=== PATIENT | male | born 1960 | race Caucasian/White ===

== ENCOUNTER 2021-02-02 11:32 | Outpatient (REF) | payer MEDICARE, SELFPAY ==
[2021-02-02 14:56] LABS: Alanine Aminotransferase 11 U/L (0-40); Albumin Level 4.4 g/dL (3.5-5.0); Alkaline Phosphatase 91 U/L (39-117); Anion Gap 15 (12-20); Aspartate Amino Transferase 17 U/L (5-37); Bilirubin Total 0.5 mg/dL (0.0-1.0); Blood Urea Nitrogen 10 mg/dL (9-16); Calcium 9.5 mg/dL (8.4-10.2); Carbon Dioxide 29 mmol/L (22-29); Chloride 101 mmol/L (96-108); Estimated Glomerular Filt Rate > 60; Glucose Random 116 mg/dL (60-115); Potassium 4.3 mmol/L (3.3-5.1); Sodium 141 mmol/L (135-145); Total Protein 7.4 g/dL (6.5-8.0)
[2021-02-02 14:59] LABS: TSH reflex Free T4 19.34 uIU/mL (0.32-4.0)
[2021-02-02 15:39] LABS: Free T4 (Free Thyroxine) 0.55 ng/dL (0.71-1.85)
== END 2021-02-02 11:33 | disposition home or self-care (01) ==
LOC: HO.HMGCLDS 11:32
PROVIDERS: PCP Internal Medicine; Visit Provider Internal Medicine
DX: I10 Essential (primary) hypertension (principal); E03.8 Other specified hypothyroidism; E78.9 Disorder of lipoprotein metabolism, unspecified; F41.9 Anxiety disorder, unspecified
CPT/HCPCS: 36415; 80053; 84439; 84443

== ENCOUNTER 2021-04-25 14:37 | Outpatient (REF) | payer MEDICARE, SELFPAY ==
[2021-04-25 17:38] LABS: TSH reflex Free T4 7.02 uIU/mL (0.32-4.0)
[2021-04-25 18:21] LABS: Free T4 (Free Thyroxine) 0.78 ng/dL (0.71-1.85)
== END 2021-04-25 14:38 | disposition home or self-care (01) ==
LOC: HO.HMGCLDS 14:37
PROVIDERS: PCP Internal Medicine; Visit Provider Internal Medicine
DX: E03.8 Other specified hypothyroidism (principal)
CPT/HCPCS: 36415; 84439; 84443

== ENCOUNTER 2021-11-01 14:50 | Outpatient (REF) | payer MEDICARE, SELFPAY ==
[2021-11-01 17:05] LABS: TSH reflex Free T4 0.48 uIU/mL (0.32-4.0)
== END 2021-11-01 14:51 | disposition home or self-care (01) ==
LOC: HO.HMGCLDS 14:50
PROVIDERS: PCP Internal Medicine; Visit Provider Internal Medicine
DX: E03.8 Other specified hypothyroidism (principal)
CPT/HCPCS: 36415; 84443

== ENCOUNTER 2022-08-09 12:36 | Outpatient (REF) | payer MEDICARE, SELFPAY ==
[2022-08-09 14:12] LABS: MANUAL DIFF FLAG NO
[2022-08-09 14:26] LABS: Basophils Percent Auto 0.4 % (0-2); Eosinophils Absolute Auto 0.1 X10*3/uL (0.0-0.4); Eosinophils Percent Auto 1.9 % (0-4); Hematocrit 44.1 % (42.0-52.0); Hemoglobin 14.6 g/dl (14.0-18.0); Imm Gran Abs Auto 0.02 X10*3/uL (0.00-0.03); Imm Gran Pct Auto 0.3 % (0.0-0.4); Lymphocytes Absolute Auto 0.9 X10*3/uL (1.2-4.9); Lymphocytes Percent Auto 12.3 % (20-40); Mean Corpuscular HGB Conc 33.1 g/dl (31.0-36.0); Mean Corpuscular Hemoglobin 31.9 pg (27.0-33.0); Mean Corpuscular Volume 96.3 fL (80.0-98.0); Mean Platelet Volume 10.7 fL (9.4-12.4); Monocytes Absolute Auto 0.6 X10*3/uL (0.1-1.2); Monocytes Percent Auto 7.7 % (2-11); Neutrophils Absolute Auto 5.8 x10*3/uL (2.0-8.3); Neutrophils Percent Auto 77.4 % (45-73); Platelet Count 235 X10*3/uL (160-400); Red Blood Count 4.58 X10*6/uL (4.60-5.80); Red Cell Distribution Width 12.6 % (11.0-16.0); White Blood Count 7.4 X10*3/uL (4.8-10.8)
[2022-08-09 16:20] LABS: Influenza A PCR NEGATIVE (Negative); Influenza B PCR NEGATIVE (Negative); Resp Syncy Virus RNA Qual PCR NEGATIVE (Negative); SARS COV2 PCR INHOUSE NEGATIVE (Negative)
[2022-08-09 16:47] LABS: Alanine Aminotransferase 14 U/L (0-40); Albumin Level 4.4 g/dL (3.5-5.0); Alkaline Phosphatase 94 U/L (39-117); Anion Gap 11 (12-20); Aspartate Amino Transferase 19 U/L (5-37); Bilirubin Total 0.4 mg/dL (0.0-1.0); Blood Urea Nitrogen 11 mg/dL (9-16); Calcium 9.5 mg/dL (8.4-10.2); Carbon Dioxide 35 mmol/L (22-29); Chloride 97 mmol/L (96-108); Estimated Glomerular Filt Rate > 60; Glucose Random 107 mg/dL (60-115); Potassium 4.5 mmol/L (3.3-5.1); Sodium 138 mmol/L (135-145); TSH reflex Free T4 23.76 uIU/mL (0.32-4.0); Total Protein 7.4 g/dL (6.5-8.0)
[2022-08-09 17:18] LABS: Free T4 (Free Thyroxine) 0.57 ng/dL (0.71-1.85)
[2022-08-10 18:14] LABS: LDL Cholesterol Direct 180 mg/dL (<100)
== END 2022-08-09 12:37 | disposition home or self-care (01) ==
LOC: HO.HMGCLDS 12:36
PROVIDERS: PCP Internal Medicine; Visit Provider Internal Medicine
DX: Z20.822 Contact with and (suspected) exposure to COVID-19 (principal); C14.0 Malignant neoplasm of pharynx, unspecified; E03.8 Other specified hypothyroidism; F33.9 Major depressive disorder, recurrent, unspecified; F41.9 Anxiety disorder, unspecified; I10 Essential (primary) hypertension; M54.2 Cervicalgia; Z72.0 Tobacco use; Z93.0 Tracheostomy status
CPT/HCPCS: 0241U; 36415; 80053; 83721; 84439; 84443; 85025

== ENCOUNTER 2022-09-23 15:21 | Outpatient (REF) | payer MEDICARE, SELFPAY ==
[2022-09-23 18:34] LABS: TSH reflex Free T4 0.04 uIU/mL (0.32-4.0)
[2022-09-23 20:01] LABS: Free T4 (Free Thyroxine) 1.21 ng/dL (0.71-1.85)
== END 2022-09-23 15:22 | disposition home or self-care (01) ==
LOC: HO.HMGCLDS 15:21
PROVIDERS: PCP Internal Medicine; Visit Provider Internal Medicine
DX: E03.8 Other specified hypothyroidism (principal)
CPT/HCPCS: 36415; 84439; 84443

== ENCOUNTER 2023-03-18 02:45 | Emergency (ER) | payer MEDICARE, SELFPAY ==
--- NOTE | ~2023-03-18 | XR_ITS ---
EXAMINATION: XR ELBOW, LEFT CLINICAL INFORMATION: Left elbow injury COMPARISON: None available. TECHNIQUE: AP, lateral, and oblique views of the left elbow. FINDINGS: Osseous alignment is anatomic. There is severe degenerative change at the elbow with joint space narrowing and spurring. No acute fracture is seen. There is prominent dorsal soft tissue swelling medially with possible associated skin defect. Small nonspecific calcification noted in the ventral soft tissues on the lateral view. XR/XR elbow LT min 3V IMPRESSION: Prominent dorsal soft tissue swelling with possible skin defect. No acute fracture identified. Severe degenerative change.
[2023-03-18 03:14] VITALS: BP 104/69; PULSE 63; RESP 16; TEMP 37.1; O2SAT 92; BMI 23.6
[2023-03-18 04:00] VITALS: BP 108/68; PULSE 66; RESP 18; TEMP 36.5; O2SAT 98
[2023-03-18 07:42] VITALS: BP 131/74; PULSE 50; RESP 14; TEMP 36.6; O2SAT 93
--- NOTE | 2023-03-18 08:23 | PC.NURSE ---
pt very upset with wait to see provider, stating this is bullshit we have been here for over 6 hours . laceration of pt re-wrapped, pt and not willing to wait for provider
== END 2023-03-18 08:26 | disposition left against medical advice (07) ==
PROVIDERS: Emergency Provider Emergency Medicine; PCP Internal Medicine
DX: M25.522 Pain in left elbow (principal)
CPT/HCPCS: 73080; 99283

== ENCOUNTER 2023-03-18 08:49 | Outpatient (AMB) | payer MEDICARE, SELFPAY ==
--- NOTE | 2023-03-18 09:00 | AM.OFFWIN_ITS ---
Intake Vital Signs 03/18/23 09:04 BP 120/80 Blood Pressure Location Rt brachial Position Sitting Pulse 64 Pulse Source Pulse Oximeter Pulse Oximetry (%) 97 Oxygen Delivery Method Room Air Intake Visit Reasons: EP, Laceration Left Elbow Intake Note: * Patient here because he had a fall in the bathroom at around 12pm and went to ED, laceration on left elbow. Patient Tobacco Use Status: Current everyday Tobacco user Allergies No Known Allergies Allergy (Verified 03/18/23 09:03) Do you need a note to return to daycare/school/sports/work: No HPI EP, Laceration Left Elbow HPI Details 63-year-old male presents to the office for a sick visit. Patient fell yesterday in the bathroom. [facility] Medical History Anxiety Throat cancer Family History Father Cancer Social History Housing: Apartment Patient Tobacco Use Status: Current everyday Tobacco user Cigarette Packs Per Day: 0.25 Years Smoked: 50 years e-Cigarette/Vaping Use: Never Used Second Hand Smoke Exposure: Yes service: No Current occupational status: disabled Cognitive needs: No Hearing needs: No Vision needs: No Physical Exam Vital Signs: Last Vital Signs Pulse 64 03/18/23 09:04 BP 120/80 03/18/23 09:04 Pulse Ox 97 03/18/23 09:04 Oxygen Delivery Method Room Air 03/18/23 09:04 Skin Other: Left elbow: Posterior surface: 2 will lacerated wound, deep. Full range of motion at the elbow. One wound is 3 centimetres in size and the other is 5 centimetres in size. Office Procedures Laceration Repair Laceration repair performed by: Temo Bradshaw Explained risks and benefits to parent: Yes Location: Left elbow Length: 8 cm Sedation: No Anesthesia: 2% lidocaine Irrigation: saline Preparation: betadine Deep closure: No Skin closure: nylon Technique: Two wounds. One is 5 centimetres in the other is 3 centimetres in size. Topical treatment: mupiricin Tetanus toxoid ordered: No Patient tolerated procedure: well Complications: [place] [id number] Repair 2.6-7.5cm Procedure code (CPT) selection complete Assessment & Plan Assessment & Plan (1) Elbow wound: Code(s): S51.009A - Unspecified open wound of unspecified elbow, initial encounter Orders: Orders Laceration repair Today S51.009A - Unspecified open wound of unspecified elbow, initial encounter Coding Level of Care Code Est Pt Level 3 (89754) Diagnoses Elbow wound S51.009A
[2023-03-18 09:04] VITALS: BP 120/80; PULSE 64; O2SAT 97
== END 2023-03-18 10:12 | disposition home or self-care (01) ==
PROVIDERS: PCP Internal Medicine; Visit Provider Internal Medicine
DX: S51.009A Unspecified open wound of unspecified elbow, initial encounter (principal)
CPT/HCPCS: 99213

== ENCOUNTER 2023-03-26 11:08 | Outpatient (REF) | payer MEDICARE, SELFPAY ==
[2023-03-26 14:09] LABS: Alanine Aminotransferase 10 U/L (0-40); Alkaline Phosphatase 94 U/L (39-117); Anion Gap 11 (12-20); Aspartate Amino Transferase 17 U/L (5-37); Bilirubin Total 0.4 mg/dL (0.0-1.0); Blood Urea Nitrogen 14 mg/dL (9-16); Calcium 9.2 mg/dL (8.4-10.2); Carbon Dioxide 32 mmol/L (22-29); Chloride 100 mmol/L (96-108); Estimated Glomerular Filt Rate > 60; Glucose Random 104 mg/dL (60-115); Potassium 4.4 mmol/L (3.3-5.1); Sodium 139 mmol/L (135-145)
[2023-03-26 14:16] LABS: TSH reflex Free T4 2.13 uIU/mL (0.32-4.0)
== END 2023-03-26 11:09 | disposition home or self-care (01) ==
LOC: HO.HMGCLDS 11:08
PROVIDERS: PCP Internal Medicine; Visit Provider Internal Medicine
DX: C14.0 Malignant neoplasm of pharynx, unspecified (principal); E03.8 Other specified hypothyroidism; F41.9 Anxiety disorder, unspecified; I10 Essential (primary) hypertension; Z72.0 Tobacco use
CPT/HCPCS: 36415; 80053; 84443

== ENCOUNTER 2023-03-27 08:05 | Outpatient (AMB) | payer MEDICARE, SELFPAY ==
--- NOTE | 2023-03-27 08:09 | MHC.OFFWIV ---
Intake Vital Signs 03/27/23 08:10 BP 130/80 Blood Pressure Location Rt brachial Position Sitting Pulse 80 Pulse Source Pulse Oximeter Pulse Oximetry (%) 98 Oxygen Delivery Method Room Air Intake Visit Reasons: EP stitches out (lobby) Intake Note: Patient here for stitch removal from elbow. Patient Tobacco Use Status: Current everyday Tobacco user Allergies No Known Allergies Allergy (Verified 03/18/23 09:03) Do you need a note to return to daycare/school/sports/work: No HPI HPI Comments History of Present Illness Details 63-year-old male presents for removal of stitches to the elbow. Denies any fevers or chills endorses some mild drainage from the elbow wound. [facility] Medical History Anxiety Throat cancer Family History Father Cancer Social History Housing: Apartment Patient Tobacco Use Status: Current everyday Tobacco user Cigarette Packs Per Day: 0.25 Years Smoked: 50 years e-Cigarette/Vaping Use: Never Used Second Hand Smoke Exposure: Yes service: No Current occupational status: disabled Cognitive needs: No Hearing needs: No Vision needs: No Review of Systems Skin/Breast Details: Mild drainage from the wound the elbow Physical Exam Vital Signs: Last Vital Signs Pulse 80 03/27/23 08:10 BP 130/80 03/27/23 08:10 Pulse Ox 98 03/27/23 08:10 Oxygen Delivery Method Room Air 03/27/23 08:10 Skin Other: Stitches on the left elbow. Upper stitches with close skin distal stitches with weeping. Mild erythema surrounding the wound Assessment & Plan Assessment & Plan (1) Visit for suture removal: Code(s): Z48.02 - Encounter for removal of sutures (2) Visit for wound check: Code(s): Z51.89 - Encounter for other specified aftercare Plan 63-year-old male presents for removal of stitches to the elbow. VSs. Exam patient's insulin oriented no acute distress. Exam is notable for stitches on the left elbow upper portion of his sutures with clean dry intact scan bottom portion of the stitches with weeping skin does not appear adequately closed. Discussed this with patient I will prescribe antibiotics due to the abnormal drainage as well as allow the skin to approximate well return on Friday for wound check and possible removal of remaining 5 sutures. Discharge instructions, follow up and treatment are discussed with patient in my usual fashion. Alternatives in treatment are also discussed. The patient will return for worsening symptoms or as needed. Advised that any labs/imaging ordered will be followed up on and contact made if further treatment needed. Counseled that patient's condition may require further evaluation and/or treatment. Symptoms of concern for worsening disorder discussed in detail in my customary manner. Patient does verbalize understanding of the plan, there are no apparent barriers to communication. The patient is given the opportunity to ask questions and have them answered to his/her satisfaction Medications: New cephalexin 500 mg PO QID 5 days 20 caps 0RF Coding Level of Care Code Est Pt Level 3 (64957) Diagnoses Visit for suture removal Z48.02 Visit for wound check Z51.89
[2023-03-27 08:10] VITALS: BP 130/80; PULSE 80; O2SAT 98
== END 2023-03-27 08:43 | disposition home or self-care (01) ==
PROVIDERS: PCP Internal Medicine; Visit Provider Physician Assistant
DX: Z48.02 Encounter for removal of sutures (principal); Z51.89 Encounter for other specified aftercare
CPT/HCPCS: 99213

== ENCOUNTER 2023-04-02 11:06 | Outpatient (AMB) | payer MEDICARE, SELFPAY ==
--- NOTE | 2023-04-02 11:06 | MHC.OFFWIV ---
Intake Vital Signs 04/02/23 11:11 Height 5 ft 9 in BP 120/80 Blood Pressure Location Rt brachial Position Sitting Pulse 78 Pulse Source Pulse Oximeter Temp 97.1 F Temp Source Temporal Artery Scan Pulse Oximetry (%) 95 Oxygen Delivery Method Room Air Intake Visit Reasons: EP, Left elbow pain Intake Note: Patient here to have remaining stitches removed from left elbow. Patient Tobacco Use Status: Current everyday Tobacco user Allergies No Known Allergies Allergy (Verified 04/02/23 11:06) Do you need a note to return to daycare/school/sports/work: No HPI HPI Comments History of Present Illness Details 1119 63-year-old male presents for suture removal of sutures to left elbow placed a few weeks ago, patient was told to wait until he completed a course of antibiotics and to return for suture removal. They are located in his left elbow denies redness, swelling, fevers, chills, weeping or purulent discharge from wound. Patient was prescribed Keflex for 5 days, taking as prescribed Physical exam 5 sutures to left elbow clean dry, intact, no erythema, warmth or discharge from area. + slight dehiscence to the distal aspect of wound w/ poor wound healing Likely poor wound healing patient already took antibiotics, Dermabond applied overlying the region. Advised him to return with any new or worsening symptoms at this time there is no signs of cellulitis, septic joint, threat to Zhao, neurovascular compromise however I did have a long conversation with patient about septic joint and if infection occurs he should seek medical attention immediately. Patient verbalizes understanding. Plan suture removal. Educated patient on diagnosis and treatment plan, answered all question, patient verbalizes understanding. At this time patient will be discharged home, advised to return with new or worsening symptoms. Educated on worrisome signs and symptoms and when to return. At this time I feel comfortable discharge home. [facility] Medical History Anxiety Throat cancer Family History Father Cancer Social History Housing: Apartment Patient Tobacco Use Status: Current everyday Tobacco user Cigarette Packs Per Day: 0.25 Years Smoked: 50 years e-Cigarette/Vaping Use: Never Used Second Hand Smoke Exposure: Yes service: No Current occupational status: disabled Cognitive needs: No Hearing needs: No Vision needs: No Review of Systems Const Details: Constitutional : No Weight loss, No Fever, No Chills, No Fatigue, No Malaise ENT/Mouth : No sore throat, No Rhinorrhea Eyes: No Eye Pain, No Swelling, No Redness Cardiovascular : No Chest Pain, No SOB, No Dyspnea on Exertion, No Orthopnea, No Edema, No Palpitations Respiratory : No Cough, No Sputum, No Wheezing Gastrointestinal : No Nausea, No Vomiting, No Diarrhea, No Constipation, No abdominal Pain, No Hematochezia, No Melena Genitourinary : No Dysuria, No Urinary Frequency, No Hematuria, Musculoskeletal : No joint pain, No Myalgias, No Joint Swelling Skin : No Skin Lesions, No rash, +laceration w/ sutures in place Neuro : No Weakness, No Numbness, No Dizziness, No Headache Psych : No Anxiety/Panic, No Depression All other systems reviewed and are negative All systems reviewed & are unremarkable except as noted in HPI and below Physical Exam Vital Signs: Last Vital Signs Temp 97.1 F 04/02/23 11:11 Pulse 78 04/02/23 11:11 BP 120/80 04/02/23 11:11 Pulse Ox 95 04/02/23 11:11 Oxygen Delivery Method Room Air 04/02/23 11:11 Vital signs stable Appearance: Alert.? Oriented X3.? No acute distress.? Head: Normocephalic, atraumatic, no step-offs or deformities Eyes: Pupils equal, round and reactive to light.? CVS: Normal heart rate and rhythm.? Pulses normal.? Respiratory: No respiratory distress.? Breath sounds normal.? Abdomen: Soft and nontender.? Skin: Skin warm and dry.? Normal skin color.? Normal skin turgor.?+ left elbow laceration closed with 5 sutures clean dry and intact. No purulence. slight dehiscence to the distal aspect of wound w/ poor wound healing Extremities: No lower extremity edema.? No calf ttp. 5/5 strength to bilateral upper and lower extremities Back: No midline tenderness, no C-spine tenderness, full range of motion, no CVA tenderness bilaterally Neuro: Oriented X 3.? No motor deficit.? No sensory deficit. CN 2-12 intact Assessment & Plan Assessment & Plan (1) Visit for suture removal: Code(s): Z48.02 - Encounter for removal of sutures (2) Delayed wound healing: Code(s): T14.8XXD - Other injury of unspecified body region, subsequent encounter Plan Take your medications as prescribed. If you were prescribed antibiotics today, it is important that you take your medication to their entirety, do not skip any doses, do not finish them early. Follow-up with your primary care provider this week. Return to the emergency department with new or worsening symptoms. Such as fevers, chills, chest pain, shortness of breath, nausea, vomiting, dizziness, headache, vision changes, lethargy In case of emergency call 911 Coding Level of Care Code Est Pt Level 2 (80685) Diagnoses Visit for suture removal Z48.02 Delayed wound healing T14.8XXD
[2023-04-02 11:11] VITALS: BP 120/80; PULSE 78; TEMP 36.2; O2SAT 95
== END 2023-04-02 11:32 | disposition home or self-care (01) ==
PROVIDERS: PCP Internal Medicine; Visit Provider Physician Assistant
DX: Z48.02 Encounter for removal of sutures (principal); T14.8XXD Other injury of unspecified body region, subsequent encounter
CPT/HCPCS: 99212

== ENCOUNTER 2023-05-06 12:00 | Outpatient (AMB) | payer MEDICARE, SELFPAY ==
[2023-05-06 12:03] VITALS: BP 118/76; PULSE 76; O2SAT 96; BMI 22.0
--- NOTE | 2023-05-06 12:03 | MHC.PC.OV ---
Vital Signs 05/06/23 12:03 Height 5 ft 9 in Weight 149 lb BMI 22.0 BP 118/76 Blood Pressure Location Rt brachial Position Sitting Pulse 76 Pulse Source Pulse Oximeter Pulse Oximetry (%) 96 Oxygen Delivery Method Room Air Intake Visit Reasons: Follow up Anxiety Allergies No Known Allergies Allergy (Verified 05/06/23 12:04) Medication List - Last Reconciled 05/06/23 by Mei Ponce MD alprazolam 1 mg PO BID 30 days aspirin (Adult Low Dose Aspirin) 81 mg PO DAILY cephalexin 500 mg PO QID 5 days labetalol 200 mg PO BID 90 days levothyroxine 137 mcg PO DAILY 90 days oxycodone mg PO Tobacco use date assessed: 05/06/23 Fall risk assessment: 1 Fall in past year Last assessed Fall Risk: 05/06/23 Dental Screening Dental Screen Date: 05/06/23 Did you have a dental problem in the last 6 months where you did not have access to dental care?: No Was dental information given to patient?: No HPI Follow up Anxiety HPI Details Patient is a 63-year-old gentleman with a history of throat cancer Patient continued to smoke once again patient was advised to stop as soon as possible Anxiety disorder: Patient is on alprazolam 1 mg b.i.d. for a while he comes in every 3 months for refill, patient is complying with the treatment plan. I did prescribe Lexapro for him but he did not take it. Blood pressure is stable patient is on labetalol 200 mg b.i.d. no side effects Hypothyroidism: Continue levothyroxine 137 mcg Labs were done March of this year Next set of labs to be done before next visit Follow-up 3 months [facility] Medical History Anxiety Throat cancer Family History Father Cancer Social History Housing: Apartment Patient Tobacco Use Status: Current everyday Tobacco user Cigarette Packs Per Day: 0.25 Years Smoked: 50 years e-Cigarette/Vaping Use: Never Used Second Hand Smoke Exposure: Yes service: No Current occupational status: disabled Cognitive needs: No Hearing needs: No Vision needs: No Questionnaire PHQ-9 Over the last 2 weeks, how often have you been bothered by any of the following problems? 1. Little interest or pleasure in doing things: nearly every day 2. Feeling down, depressed, or hopeless: nearly every day 3. Trouble falling or staying asleep, or sleeping too much: nearly every day 4. Feeling tired or having little energy: nearly every day 5. Poor appetite or overeating: nearly every day 6. Feeling bad about yourself - or that you are a failure or have let yourself or your family down: more than half the days 7. Trouble concentrating on things, such as reading the newspaper or watching television: more than half the days 8. Moving or speaking so slowly that other people could have noticed. Or the opposite - being so fidgety or restless that you have been moving around a lot more than usual: nearly every day 9. Thoughts that you would be better off or of hurting yourself in some way: not at all Total score: 22 Depression Screening Interpretation: Positive 12551 - PHQ-9 Billing: Yes Source: Developed by Drs. Ronny Bishop, Carmel Harmon, Chandler Benitez and colleagues, with an educational sruthi from [employer]. Thrive Questionnaire Date Thrive assessed: 07/11/21 AUDIT C Alcohol Use Questionnaire (AUDIT-C) 1. How often do you have a drink containing alcohol?: Never 3. How often do you have six or more drinks on one occasion?: Never Total Score: 0 Score Reviewed/Action Taken: Yes Review of Systems Const Denies chills and Denies fever(s) ENT Denies epistaxis and Denies nasal discharge Card Denies chest pain Resp Denies chest congestion, Denies cough and Denies hemoptysis GI Denies diarrhea and Denies nausea Skin/Breast Denies rash Neuro Reports no additional complaints Psych Reports no additional complaints Endo Reports no additional complaints Physical exam (Primary Care) Vital Signs: Last Vital Signs Pulse 76 05/06/23 12:03 BP 118/76 05/06/23 12:03 Pulse Ox 96 05/06/23 12:03 Oxygen Delivery Method Room Air 05/06/23 12:03 BMI result Body Mass Index 22.0 Tobacco/Smoking Status: Tobacco use Status Tobacco use date assessed 05/06/23 05/06/23 12:04 Patient Tobacco Use Status Current everyday Tobacco 05/06/23 12:04 e-Cigarette/Vaping Use Never Used 05/06/23 12:04 Are you ready to quit: Yes Tobacco cessation counseling provided: Yes Relapse Prevention: discussed the importance of a supportive environment CPT code: 27124 - 4-10 Minutes PHQ-9: PHQ-9 Score PHQ-9: Total score 22 05/06/23 12:25 Depression Screening Interpretation: Positive Thrive Assessment: Date of Thrive Assessment Date Thrive assessed 07/11/21 05/06/23 12:04 Const General: cooperative, comfortable and no acute distress Orientation/consciousness: patient oriented x3 HENMT Head: Yes normocephalic Eyes General: appearance normal, both eyes and all related structures Neck Neck: Yes supple Resp Other: Mild wheezing right base Effort & Inspection: no cough Cardio Rhythm: regular rhythm Heart sounds: S1 normal heart sound present and S2 normal heart sound present Skin General skin exam: turgor normal Neuro General: patient oriented x3, tone normal and moves all extremities Extrem Right lower extremity: no edema Left lower extremity: no edema Assessment and Plan Assessment & Plan (1) Anxiety: Code(s): F41.9 - Anxiety disorder, unspecified (2) Throat cancer: Code(s): C14.0 - Malignant neoplasm of pharynx, unspecified (3) Hypertension, essential: Code(s): I10 - Essential (primary) hypertension (4) Other specified hypothyroidism: Code(s): E03.8 - Other specified hypothyroidism (5) Tobacco abuse: Code(s): Z72.0 - Tobacco use (6) Tobacco abuse counseling: Code(s): Z71.6 - Tobacco abuse counseling (7) Major depression, recurrent: Code(s): F33.9 - Major depressive disorder, recurrent, unspecified Qualifiers: Active/Remission status: currently active Major depression episode severity: moderate Qualified Code(s): F33.1 - Major depressive disorder, recurrent, moderate Plan Patient is a 63-year-old gentleman with a history of throat cancer Patient continued to smoke once again patient was advised to stop as soon as possible Anxiety disorder: Patient is on alprazolam 1 mg b.i.d. for a while he comes in every 3 months for refill, patient is complying with the treatment plan. I did prescribe Lexapro for him but he did not take it. He continue to struggle with depression due to his illness Blood pressure is stable patient is on labetalol 200 mg b.i.d. no side effects Hypothyroidism: Continue levothyroxine 137 mcg Labs were done March of this year Next set of labs to be done before next visit Follow-up 3 months Orders: Orders Complete Blood Count Auto Diff Today C14.0 - Malignant neoplasm of pharynx, unspecified, E03.8 - Other specified hypothyroidism, F33.9 - Major depressive disorder, recurrent, unspecified, F41.9 - Anxiety disorder, unspecified, I10 - Essential (primary) hypertension, Z72.0 - Tobacco use Comprehensive Met. Panel Today C14.0 - Malignant neoplasm of pharynx, unspecified, E03.8 - Other specified hypothyroidism, F33.9 - Major depressive disorder, recurrent, unspecified, F41.9 - Anxiety disorder, unspecified, I10 - Essential (primary) hypertension, Z72.0 - Tobacco use TSH reflex Free T4 Today C14.0 - Malignant neoplasm of pharynx, unspecified, E03.8 - Other specified hypothyroidism, F33.9 - Major depressive disorder, recurrent, unspecified, F41.9 - Anxiety disorder, unspecified, I10 - Essential (primary) hypertension, Z72.0 - Tobacco use Medications: Refilled alprazolam 1 mg PO BID 60 tabs 2RF 30 days F41.9 - Anxiety disorder, unspecified levothyroxine 137 mcg PO DAILY 90 tabs 1RF 90 days Coding Level of Care Code Est Pt Level 4 (07760) Diagnoses Anxiety F41.9 Throat cancer C14.0 Hypertension, essential I10 Other specified hypothyroidism E03.8 Tobacco abuse Z72.0 Tobacco abuse counseling Z71.6 Major depression, recurrent F33.1 Active/Remission status: currently active Major depression episode severity: moderate Additional Codes Vital Signs *Quality* - CPT code: 20941 - 4-10 Minutes ([id number])
== END 2023-05-06 12:21 | disposition home or self-care (01) ==
PROVIDERS: PCP Internal Medicine; Visit Provider Internal Medicine
DX: I10 Essential (primary) hypertension (principal); F41.9 Anxiety disorder, unspecified; C14.0 Malignant neoplasm of pharynx, unspecified; E03.8 Other specified hypothyroidism; F33.1 Major depressive disorder, recurrent, moderate; Z72.0 Tobacco use; Z71.6 Tobacco abuse counseling
CPT/HCPCS: 99214

== ENCOUNTER 2023-05-29 18:41 | Inpatient (IN) | payer MEDICARE, SELFPAY ==
--- NOTE | 2023-05-29 | ECG_ITS ---
Test Reason : stroke Blood Pressure : / mmHG Vent. Rate : 059 BPM Atrial Rate : 059 BPM P-R Int : 136 ms QRS Dur : 086 ms QT Int : 428 ms P-R-T Axes : -17 017 037 degrees QTc Int : 423 ms Sinus bradycardia Nonspecific ST abnormality Abnormal ECG When compared with ECG of 29-NOV-2013 15:31, OK interval has increased QRS duration has decreased ST now depressed in Lateral leads T wave inversion now evident in Inferior leads Referred By: Pau Lazo Electronically Signed By:CLAYTON FERRER
--- NOTE | ~2023-05-29 | CT_ITS ---
EXAMINATION: CT head for stroke CLINICAL INFORMATION: Reason for Exam AMS COMPARISON: None. TECHNIQUE: Contiguous axial imaging was performed from the skull base to vertex without intravenous contrast. Sagittal and coronal reformatted images were obtained. This CT examination was performed using dose optimization techniques as appropriate, variously including the following: * Automated exposure control * Adjustment of mA and/or kV according to patient size (this includes techniques or standardized protocols for targeted exams where dose is matched to indication/reason for exam; i.e. extremities or head) Use of iterative reconstruction technique DLP: 750.19 mGy-cm FINDINGS: There is an ill-defined mass in the left temporal lobe with peripheral calcification and exuberant surrounding vasogenic edema in the left temporal white matter extending into the left temporal stem and basal ganglia. There is additional focus of hyperdensity in the left parietal lobe with mild surrounding vasogenic edema, likely reflecting an additional peripherally calcified lesion. No discrete intracranial hemorrhage is identified. There is mild mass effect with partial effacement of the left lateral ventricle and trace rightward midline shift. No acute osseous or soft tissue abnormality. The mastoid air cells and visualized portions of the paranasal sinuses are well aerated. There is no acute territorial infarction. No extra-axial fluid collections are identified. No hydrocephalus. Mild generalized cerebral volume loss. Suspected aneurysm along the right aspect of the basilar tip measuring approximately [address]/CT head for stroke IMPRESSION: 1. Ill-defined mass in the left temporal lobe with surrounding vasogenic edema and mild locoregional mass effect with trace rightward midline shift. Additional suspected partially calcified lesion in the left parietal lobe with mild surrounding vasogenic edema. Findings are concerning for intracranial metastatic disease. Recommend further evaluation with contrast-enhanced MRI of the brain. 2. Suspected aneurysm along the right aspect of the basilar tip measuring approximately 5 mm. Recommend further assessment with noncontrast MRA head. Above impression was discussed with Dr. Lazo on 05/29/2023 at 7:27 PM
--- NOTE | ~2023-05-29 | XR_ITS ---
EXAMINATION: XR CHEST CLINICAL INFORMATION: Shortness of breath COMPARISON: 02/02/2018 TECHNIQUE: Frontal view of the chest was obtained. FINDINGS: Positioning is suboptimal due to patient's combative nature at the time the study. Heart and mediastinum within normal limits. Aortic calcifications again seen. No vascular congestion, consolidations or effusions. Bony structures including the old rib fractures are stable in appearance. XR/XR chest 1V IMPRESSION: No acute cardiopulmonary disease or interval change.
--- NOTE | 2023-05-29 18:56 | ED_ITS ---
HPI - Neuro Symptoms/Deficit General Chief Complaint: Stroke Stated Complaint: stroke symptoms, per ems Time Seen by Provider: 05/29/23 18:48 History of Present Illness HPI Narrative: PATIENT IS 63-YEAR-OLD MALE with a history of throat cancer. Presented today with having altered mental status changes in voice. Question etiology. Patient last known well time was at approximately 14:30. Arrive in the emergency department at approximately 18:30. Patient sugar was noted by EMS to be greater than 100. Patient confused not sure where he is located he is oriented to self. Per EMS this is not like him. Patient has a long history of alcoholism and also long history of smoking. History of throat cancer. Related Data Home Medications Medication Instructions Recorded Confirmed aspirin 81 mg tablet,delayed 81 mg PO DAILY 10/10/21 05/06/23 release (Adult Low Dose Aspirin) Previous Rx's Medication Instructions Recorded cephalexin 500 mg capsule 500 mg PO QID 5 days #20 caps 03/27/23 labetalol 200 mg tablet 200 mg PO BID 90 days #180 tabs 04/01/23 alprazolam 1 mg tablet 1 mg PO BID 30 days #60 tabs 05/06/23 levothyroxine 137 mcg tablet 137 mcg PO DAILY 90 days #90 tabs 05/06/23 Allergies Allergy/AdvReac Type Severity Reaction Status Date / Time No Known Allergies Allergy Verified 05/06/23 12:04 Review of Systems 2 Review of Systems: Patient refused to answer specific review of system Yes all other systems are reviewed and are negative PMFSH Past Medical History Attestation statement: The following information was validated with the patient. Medical History Throat cancer Anxiety Family History Family History Father Cancer Social History Social History Housing: Apartment Alcohol intake: current Patient Tobacco Use Status: Current everyday Tobacco user Cigarette Packs Per Day: 0.25 Years Smoked: 50 years Smoked in Last 30 Days: Yes e-Cigarette/Vaping Use: Never Used Second Hand Smoke Exposure: Yes Use of substances other than those prescribed or required for medical reasons: No Advance Directives: Yes Advance Directives Information Provided: No Advance Directives on File: No service: No Current occupational status: disabled Cognitive needs: No Hearing needs: No Vision needs: No Physical Exam 2 Vital Signs: Vital Signs: Last Vital Signs Temp 99.6 F 05/29/23 19:11 Pulse 70 05/29/23 19:11 Resp 18 05/29/23 19:11 BP 172/103 H 05/29/23 19:11 Pulse Ox 99 05/29/23 19:11 O2 Del Method Room Air 05/29/23 19:11 BMI result Body Mass Index 25.5 Appearance: Alert. Oriented to self only. No acute distress. Eyes: Pupils equal, round and reactive to light. ENT: Pharynx normal. Neck: Normal inspection. Neck supple. No lymph nodes noted. No crepitus CVS: Normal heart rate and rhythm. Pulses normal. Normal S1 and S2 Respiratory: No respiratory distress. Breath sounds normal. No Wheezing. No rales Abdomen: Soft and nontender. No rigidity. No distention. good BS x4 Skin: Skin warm and dry. Normal skin color. Normal skin turgor. Extremities: No lower extremity edema. Neurovascular intact to all extremities. No Lacerations. No Rash Neuro: Oriented self. No motor deficit. No sensory deficit. Moving all extermities. Streaky voice. Tolerate own saliva. Trachea is midline. Medications Administered Discontinued Medications Generic Name Dose Route Start Last Admin Trade Name Roxanne PRN Reason Stop Dose Admin Dexamethasone Sodium Phosphate 10 mg 05/29/23 19:29 05/29/23 19:36 Dexamethasone Sod Phosphate 10 Mg/Ml Vial IVPUSH 05/29/23 19:30 10 mg ONCE ONE Administration Lorazepam 1 mg 05/29/23 18:55 05/29/23 19:00 Lorazepam 2 Mg/Ml Vial IVPUSH 05/29/23 18:56 1 mg ONCE ONE Administration Medical Decision Making Medical Decision Making MDM Narrative: Patient presented today with having change in mental status more lethargy than usual. Also had some changes in speech. Patient very confused afterwards wall jumbled. Last known to be well was at approximately 14:30. Patient's spoke with him. Has a baseline history of stroke cancer in addition patient also has a history of lung cancer. Recently got the lung cancer treated. Per patient the CT scan showed no recurrence of the lung cancer. Patient's DEION cancers been ongoing for years. Status post trach. He still smokes. CT scan of the head was done emergently. There is a lesion in the left temporal area. Consistent with having a possible mass. I had a long discussion with the radiologist. [place] this is secondary to a metastasis. Question secondary to throat cancer versus from lung cancer. Nevertheless patient was started on Decadron immediately. There is no evidence of bleed on the CT scan. CTA was skipped as patient has a mass a reason for why he is altered. He is not on any blood thinners. Differential Diagnosis Differential Diagnoses: The differential diagnosis associated with the presentation includes Intracranial bleed, CVA, urinary tract infection, pneumonia, COVID, substance abuse, psychiatric causes Admission/Observation Consideration of admission/observation: Escalation of care including admission/observation considered Consult Healthcare Provider Management of the patient was discussed with: Hospitalist Lab Data MDM Lab Attestation statement: I reviewed the patient's lab results. 05/29/23 19:16 05/29/23 19:16 Labs: Lab Results 05/29/23 05/29/23 05/29/23 Range/Units 18:50 18:56 19:16 WBC 8.8 (4.8-10.8) X10*3/uL RBC 4.68 (4.60-5.80) X10*6/uL Hgb 15.0 (14.0-18.0) g/dl Hct 45.0 (42.0-52.0) % MCV 96.2 (80.0-98.0) fL MCH 32.1 (27.0-33.0) pg MCHC 33.3 (31.0-36.0) g/dl RDW 12.7 (11.0-16.0) % Plt Count 173 D (160-400) X10*3/uL MPV 10.6 (9.4-12.4) fL Immature Gran % (Auto) 0.2 (0.0-0.4) % Neut % (Auto) 90.1 H (45-73) % Lymph % (Auto) 5.6 L (20-40) % [place] % (Auto) 3.7 (2-11) % Eos % (Auto) 0.1 (0-4) % Baso % (Auto) 0.3 (0-2) % Lymph # (Auto) 0.5 L (1.2-4.9) X10*3/uL [place] # (Auto) 0.3 (0.1-1.2) X10*3/uL Eos # (Auto) 0.0 (0.0-0.4) X10*3/uL Baso # (Auto) 0.0 (0.0-0.2) X10*3/uL Abs Immat Gran (auto) 0.02 (0.00-0.03) X10*3/uL Absolute Neuts (auto) 7.9 (2.0-8.3) x10*3/uL Absolute Nucleated RBC 0.000 (0.0-0.012) X10*3/uL Nucleated RBC % (auto) 0.0 (0.0-0.2) /100WBC Smear Tech's Comments VERIFIED PT 12.1 (11.1-13.3) SEC Whole Blood PT 13.6 H (11.1-13.5) sec INR 1.0 (0.9-1.1) Whole Blood INR 1.1 (0.9-1.1) APTT 35.6 (26.0-36.4) SEC Sodium 139 (135-145) mmol/L Potassium 4.7 (3.3-5.1) mmol/L Chloride 96 (96-108) mmol/L Carbon Dioxide 27 (22-29) mmol/L Anion Gap 21 H (12-20) BUN 6 L (9-16) mg/dL Creatinine 0.63 (0.5-1.4) mg/dL Estim Creat Clear Calc 99.1 Estimated GFR > 60 POC Glucose 100 (60-115) mg/dL Random Glucose 98 (60-115) mg/dL Calcium 9.8 D (8.4-10.2) mg/dL Troponin I High Sens 26.3 (<3.5-35.0) ng/L Ethyl Alcohol < 10 mg/dL Independent Interpretation I performed an independent interpretation of an: EKG and CT Scan Interpretation: My interpretation patient's EKG showed a sinus rhythm heart rate is 60 WI QRS QTC within normal limits is no acute ST segment elevation noted. Radiology Impression Discussion of test interpretation with radiology: I discussed test interpretation with the radiologist and I have reviewed the radiologist's reading. Independent Historian Clinical information obtained from an independent historian. History obtained from or confirmed by: Spouse and EMS External Record Review External record reviewed: Inpatient record and Office record Tests considered The following testing was considered but not selected: CTA of the head and neck but elected to skip this patient has a mass noted in the brain Chronic Conditions Patient?s care impacted by: Cancer NIH Stroke Scale Internal: Initial- Upon Arrival Time: 19:04 Level of Consciousness: Alert Level of Consciousness Questions: Answers both questions correctly Level of Consciousness Commands: Performs both tasks correctly Best Gaze: Normal Visual: No visual loss Facial Palsy: Normal Motor Arm (Right): No drift Motor Arm (Left): No drift Motor Leg (Right): No drift Motor Leg (Left): No drift Limb Ataxia: Absent Sensory: Normal Best Language: No aphasia Dysarthia: Normal Extinction and Inattention: No abnormality Score: 0 Critical Care Time Critical Care Time Critical Care Time: Yes Total Critical Care Time: 35 Attestation: I have personally provided 40 minutes of critical care time exclusive of time spent on separately billable procedures. Time includes review of lab data, radiology results, discussion with consultants, and monitoring for potential decompensation. Interventions were performed as documented above Discharge Plan Discharge Clinical Impression: Lung cancer Patient Disposition: Admitted As Inpatient Prescriptions: No Action labetalol 200 mg tablet 200 mg PO BID 90 Days Qty: 180 3RF aspirin [Adult Low Dose Aspirin] 81 mg tablet,delayed release (DR/EC) 81 mg PO DAILY alprazolam 1 mg tablet 1 mg PO BID 30 Days Qty: 60 2RF levothyroxine 137 mcg tablet 137 mcg PO DAILY 90 Days Qty: 90 1RF cephalexin 500 mg capsule 500 mg PO QID 5 Days Qty: 20 0RF
[2023-05-29 18:57] VITALS: BP 161/104; PULSE 90; O2SAT 95
[2023-05-29 19:00] LABS: Prothrombin Time Whole Bld POC 13.6 sec (11.1-13.5); ~PT, ~INR - Anti Coag Clinic 1.1 (0.9-1.1)
[2023-05-29] MEDS: LORazepam 2 MG/ML VIAL 1 MG IVPUSH (19:00)
[2023-05-29 19:06] LABS: Glucose, Whole Blood 100 mg/dL (60-115)
[2023-05-29 19:07] VITALS: BP 161/104; PULSE 80; O2SAT 95
[2023-05-29 19:11] VITALS: BP 172/103; PULSE 70; RESP 18; TEMP 37.6; O2SAT 99; BMI 25.5
[2023-05-29 19:21] LABS: Basophils Percent Auto 0.3 % (0-2); Eosinophils Percent Auto 0.1 % (0-4); Imm Gran Abs Auto 0.02 X10*3/uL (0.00-0.03); Imm Gran Pct Auto 0.2 % (0.0-0.4); Lymphocytes Absolute Auto 0.5 X10*3/uL (1.2-4.9); Lymphocytes Percent Auto 5.6 % (20-40); MANUAL DIFF FLAG SCAN; Mean Corpuscular HGB Conc 33.3 g/dl (31.0-36.0); Mean Corpuscular Hemoglobin 32.1 pg (27.0-33.0); Mean Corpuscular Volume 96.2 fL (80.0-98.0); Mean Platelet Volume 10.6 fL (9.4-12.4); Monocytes Absolute Auto 0.3 X10*3/uL (0.1-1.2); Monocytes Percent Auto 3.7 % (2-11); Neutrophils Absolute Auto 7.9 x10*3/uL (2.0-8.3); Neutrophils Percent Auto 90.1 % (45-73); Platelet Count 173 X10*3/uL (160-400); Red Blood Count 4.68 X10*6/uL (4.60-5.80); Red Cell Distribution Width 12.7 % (11.0-16.0); SCAN SMEAR FLAG 1; White Blood Count 8.8 X10*3/uL (4.8-10.8)
--- NOTE | 2023-05-29 19:22 | MHC.EDTECH ---
Dori called back from [facility] to speak with Dr. Lazo @ 19:23
[2023-05-29 19:34] LABS: Prothrombin Time 12.1 SEC (11.1-13.3)
[2023-05-29] MEDS: dexAMETHasone sod phosphate 10 MG/ML VIAL IVPUSH (19:36)
[2023-05-29 19:37] LABS: Partial Thromboplastin Time 35.6 SEC (26.0-36.4)
[2023-05-29 19:41] LABS: Anion Gap 21 (12-20); Blood Urea Nitrogen 6 mg/dL (9-16); Calcium 9.8 mg/dL (8.4-10.2); Carbon Dioxide 27 mmol/L (22-29); Chloride 96 mmol/L (96-108); Creatinine Clr Calc Pharmacy 99.1; Estimated Glomerular Filt Rate > 60; Ethanol < 10 mg/dL; Glucose Random 98 mg/dL (60-115); Potassium 4.7 mmol/L (3.3-5.1); Sodium 139 mmol/L (135-145)
[2023-05-29 19:44] LABS: Troponin-I High Sensitivity 26.3 ng/L (<3.5-35.0)
[2023-05-29 19:46] LABS: SLIDE REVIEW VERIFIED
[2023-05-29 21:54] LABS: Amphetamine Screen Urine Not Detected (Not Detect); Barbiturates, Urine Not Detected (Not Detect); Benzodiazepines Screen Urine POSITIVE (Not Detect); Cannabinoid Screen Urine Not Detected (Not Detect); Cocaine Screen Urine Not Detected (Not Detect); Fentanyl, urine Not Detected (Not Detect); Opiate Screen Urine POSITIVE (Not Detect); Phencyclidine Screen Urine Not Detected (Not Detect)
--- NOTE | 2023-05-29 22:24 | PHA.MEDREC ---
Pharmacy Consult ? Medication Reconciliation Pharmacy has completed the medication reconciliation. PT WAS NOT RESPONSIVE TO QUESTIONS. SPOKE TO TO OBTAIN MEDICATION LIST. SHE WAS ABLE TO CONFIRM NAMES AND DOSES OF MEDS OFF OF CLAIM HISTORY.
[2023-05-29 22:31] VITALS: BP 132/82; PULSE 74; RESP 18; O2SAT 94
--- NOTE | 2023-05-29 22:33 | PM.IMHP ---
History of Present Illness Date of Service: 05/29/23 Chief Complaint: confused 63-year-old male past medical history of throat cancer in 2018, status post resection, radiation therapy, as well as presence of trach, recently diagnosed stage I lung cancer status post chemotherapy treatment and was reportedly in remission for the past year comes into the hospital with complaints of confusion. at bedside gives me most of the history as patient is very confused, obtunded, and unable to give much history. She reports that for the past 5 days he was doing very well although prior to that he was having frequent falls but no evidence of acute infection or abnormality. He was doing well the day before, but today when she got home from work it was very confused, he was talking but made no sense. And patient's was not able to understand him therefore brought into the ED. Unable to obtain other review of system On arrival to the ED patient hemodynamically stable , no significant vital abnormality Labs reviewed, unremarkable, does use chronic opioids which are positive on his UDS Head CT showed an ill-defined mass in the left temporal lobe with surrounding vasogenic edema and mild local regional mass effect with trace rightward midline shift. Additional lesion in the left parietal lobe with mild surrounding vasogenic edema findings are concerning for intracranial metastatic disease. 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 Patient's states that he does not want any surgery or invasive intervention and he does not want to be intubated or trached for any of it and therefore have wanted any further intervention that would cause him to be intubated. Neurology also okay with patient being admitted to our hospital after being discussed with ED physician Review of Systems Review of Systems: Yes all other systems are reviewed and are negative [facility] Medical History (Updated 05/30/23 @ 06:30 by Gina Medel MD) Lung cancer Non-cardiac chest pain Cervicalgia Tracheostomy present Major depression, recurrent Tobacco abuse Alcoholism Inguinal hernia of right side without obstruction or gangrene Other specified hypothyroidism Lipid disorder Hypertension, essential Throat cancer Anxiety Family History Father Cancer Social History Household Members: Significant Other Housing: Apartment Unable to assess alcohol history related to: Unknown Alcohol intake: current Patient Tobacco Use Status: Current everyday Tobacco user Cigarette Packs Per Day: 0.25 Years Smoked: 50 years Smoked in Last 30 Days: Yes e-Cigarette/Vaping Use: Never Used Second Hand Smoke Exposure: Yes Use of substances other than those prescribed or required for medical reasons: Unknown Advance Directives: Yes Advance Directives Information Provided: No Advance Directives on File: No Advance Directives Date on File: 05/30/23 Do you have thoughts of harming others: None Do you have a plan to hurt others: No Plan Recently lost weight without trying: Unsure Nutrition Risks: Difficulty swallowing service: No Current occupational status: disabled Cognitive needs: No Hearing needs: No Vision needs: No Meds Allergies Allergy/AdvReac Type Severity Reaction Status Date / Time No Known Allergies Allergy Verified 05/06/23 12:04 Home Medications Medication Instructions Recorded Confirmed Last Taken Type aspirin 81 mg tablet,delayed 81 mg PO DAILY 10/10/21 05/29/23 05/29/23 History release (Adult Low Dose Aspirin) albuterol sulfate 90 mcg/actuation 2 puff inhalation Q6H PRN wheezing 05/29/23 05/29/23 Unknown History aerosol inhaler levothyroxine 137 mcg tablet 137 mcg PO DAILY@0600 05/29/23 05/29/23 05/29/23 History oxycodone 15 mg tablet 30 mg PO Q3-4H PRN pain 05/29/23 05/29/23 Unknown History oxymetazoline 0.05 % nasal spray 2 spray intranasal Q12H PRN 05/29/23 05/29/23 Unknown History (Afrin (oxymetazoline)) Congestion Physical Exam Vital Signs and Narrative: Vital Signs: Last Vital Signs Temp 99.6 F 05/29/23 19:11 Pulse 70 05/29/23 19:11 Resp 18 05/29/23 19:11 BP 172/103 H 05/29/23 19:11 Pulse Ox 99 05/29/23 19:11 O2 Del Method Room Air 05/29/23 19:11 BMI result Body Mass Index 25.5 Const: Other: Somnolent, arousable to painful stimuli but confused General: cooperative and no acute distress Eyes: General: appearance normal, both eyes and all related structures Pupils: Equal, round and reactive pupils present Resp: Effort & Inspection: normal respiratory effort, able to speak in complete sentences and abnormal respiratory pattern Auscultation: clear to auscultation bilaterally Cardio: Rate: regular rate Rhythm: regular rhythm GI: Palpation (GI): Soft to palpation Auscultation: normal bowel sounds Skin: General skin exam: no rashes or lesions noted Neuro: Cranial nerves: Yes Equal, round and reactive pupils present Extrem: General: Yes normal to inspection and Yes no pedal edema Results Labs 05/29/23 19:16 05/29/23 19:16 Labs: Laboratory Results - last 24 hr 05/29/23 05/29/23 05/29/23 18:50 18:56 19:16 MCV 96.2 MCH 32.1 MCHC 33.3 RDW 12.7 Plt Count 173 D MPV 10.6 Immature Gran % (Auto) 0.2 Neut % (Auto) 90.1 H Lymph % (Auto) 5.6 L [place] % (Auto) 3.7 Eos % (Auto) 0.1 Baso % (Auto) 0.3 Lymph # (Auto) 0.5 L [place] # (Auto) 0.3 Eos # (Auto) 0.0 Baso # (Auto) 0.0 Abs Immat Gran (auto) 0.02 Absolute Neuts (auto) 7.9 Absolute Nucleated RBC 0.000 Nucleated RBC % (auto) 0.0 Smear Tech's Comments VERIFIED PT 12.1 Whole Blood PT 13.6 H INR 1.0 Whole Blood INR 1.1 APTT 35.6 Anion Gap 21 H Estim Creat Clear Calc 99.1 Estimated GFR > 60 POC Glucose 100 Random Glucose 98 Calcium 9.8 D Urine Opiates Screen Urine Fentanyl Screen Ur Barbiturates Screen Ur Phencyclidine Scrn Ur Amphetamines Screen U Benzodiazepines Scrn Urine Cocaine Screen U Marijuana (THC) Screen Ethyl Alcohol < 10 05/29/23 21:40 MCV MCH MCHC RDW Plt Count MPV Immature Gran % (Auto) Neut % (Auto) Lymph % (Auto) [place] % (Auto) Eos % (Auto) Baso % (Auto) Lymph # (Auto) [place] # (Auto) Eos # (Auto) Baso # (Auto) Abs Immat Gran (auto) Absolute Neuts (auto) Absolute Nucleated RBC Nucleated RBC % (auto) Smear Tech's Comments PT Whole Blood PT INR Whole Blood INR APTT Anion Gap Estim Creat Clear Calc Estimated GFR POC Glucose Random Glucose Calcium Urine Opiates Screen POSITIVE H Urine Fentanyl Screen Not Detected Ur Barbiturates Screen Not Detected Ur Phencyclidine Scrn Not Detected Ur Amphetamines Screen Not Detected U Benzodiazepines Scrn POSITIVE H Urine Cocaine Screen Not Detected U Marijuana (THC) Screen Not Detected Ethyl Alcohol Imaging Radiologist's Impressions: Impressions Head CT 05/29/23 19:05 IMPRESSION: 1. Ill-defined mass in the left temporal lobe with surrounding vasogenic edema and mild locoregional mass effect with trace rightward midline shift. Additional suspected partially calcified lesion in the left parietal lobe with mild surrounding vasogenic edema. Findings are concerning for intracranial metastatic disease. Recommend further evaluation with contrast-enhanced MRI of the brain. 2. Suspected aneurysm along the right aspect of the basilar tip measuring approximately 5 mm. Recommend further assessment with noncontrast MRA head. Above impression was discussed with Dr. Lazo on 05/29/2023 at 7:27 PM Assessment and Plan (1) Encephalopathy: Status: Acute (2) Vasogenic brain edema: Status: Acute (3) Metastatic cancer to brain: Status: Acute (4) Alcohol abuse with withdrawal: Status: Acute Plan 63-year-old male with past medical history of throat cancer status post trach, radiation therapy, as well as history of lung cancer last year, in remission comes into the hospital with confusion found to have multiple lesions in the brain # encephalopathy - secondary to brain lesions - started on dexamethasone - monitor mentation # metastatic cancer to the brain - with vasogenic edema, and trace midline shift - patient started on dexamethasone - wishes are not to do any invasive surgery the may require him to be intubated through the trach - neurology consulted # alcohol abuse withdrawal - patient was very agitated, received Ativan in the ED, as well as Haldol, but remained very agitated, - start on phenobarb protocol - according to the drinks 5-6 beers nightly # hypothyroidism - continue levothyroxine # hypertension - continue antihypertensives DVT prophylaxis: Heparin subQ Given patient's need for further management of the vasogenic edema, as well as encephalopathy patient require minimum 2 nights inpatient hospital stay for further management and monitoring Time Spent With Patient Time: Total time managing care of this patient today ____ minutes. Quality Stroke Does the patient have a stroke diagnosis?: No VTE Prior VTE?: No VTE Risk Level:: Medical - moderate - high VTE Device Contraindication: Treatment Not Indicated VTE Drug Contraindication: N/A - Med Ordered
[2023-05-29] MEDS: Haloperidol Lactate 5 MG/ML VIAL IM (22:34)
[2023-05-30 01:14] VITALS: BP 135/86; PULSE 68; RESP 16; O2SAT 94
--- NOTE | 2023-05-30 01:15 | PC.NURSE ---
Pith agitation, restlessness in bed. Speech clear, confused to date/location/events. Demanded leave bedside approx 0015, left for home. Pt requesting PO liquids, not given due to NPO status, reinforced with pt.
[2023-05-30] MEDS: dexAMETHasone sod phosphate 10 MG/ML VIAL IVPUSH ×2 (01:25→08:29)
[2023-05-30] MEDS: Heparin Sodium,Porcine 5,000 UNIT/ML VIAL 5000 UNIT SUBCUT ×2 (01:25→11:45)
[2023-05-30] MEDS: LORazepam 2 MG/ML VIAL 1 MG IVPUSH (01:49)
[2023-05-30] MEDS: 0.9 % Sodium Chloride Flush 3 ML SYRINGE IVFLUSH ×3 (01:51→15:48)
[2023-05-30 01:53] VITALS: BP 128/86; PULSE 87; RESP 19; TEMP 36.7; O2SAT 93
[2023-05-30 02:32] VITALS: BMI 24.6
[2023-05-30 07:23] LABS: Basophils Percent Auto 0.1 % (0-2); Hematocrit 48.5 % (42.0-52.0); Hemoglobin 16.4 g/dl (14.0-18.0); Imm Gran Abs Auto 0.01 X10*3/uL (0.00-0.03); Imm Gran Pct Auto 0.1 % (0.0-0.4); Lymphocytes Absolute Auto 0.6 X10*3/uL (1.2-4.9); Lymphocytes Percent Auto 8.5 % (20-40); MANUAL DIFF FLAG SCAN; Mean Corpuscular HGB Conc 33.8 g/dl (31.0-36.0); Mean Corpuscular Hemoglobin 31.5 pg (27.0-33.0); Mean Corpuscular Volume 93.3 fL (80.0-98.0); Mean Platelet Volume 10.5 fL (9.4-12.4); Monocytes Absolute Auto 0.1 X10*3/uL (0.1-1.2); Monocytes Percent Auto 1.2 % (2-11); Neutrophils Percent Auto 90.1 % (45-73); Platelet Count 194 X10*3/uL (160-400); Red Cell Distribution Width 12.3 % (11.0-16.0); SCAN SMEAR FLAG 1; White Blood Count 6.7 X10*3/uL (4.8-10.8)
[2023-05-30 07:42] LABS: Alanine Aminotransferase 11 U/L (0-40); Albumin Level 4.2 g/dL (3.5-5.0); Alkaline Phosphatase 83 U/L (39-117); Anion Gap 20 (12-20); Aspartate Amino Transferase 28 U/L (5-37); Bilirubin Total 1.5 mg/dL (0.0-1.0); Blood Urea Nitrogen 9 mg/dL (9-16); Calcium 9.6 mg/dL (8.4-10.2); Carbon Dioxide 24 mmol/L (22-29); Chloride 97 mmol/L (96-108); Cholesterol 247 mg/dL (<200); Creatinine Clr Calc Pharmacy 113.6; Estimated Glomerular Filt Rate > 60; Glucose Random 137 mg/dL (60-115); HDL Cholesterol 72 mg/dL (>40); LDL Cholesterol Calculated 157 mg/dL (<100); Potassium 3.8 mmol/L (3.3-5.1); Sodium 137 mmol/L (135-145); Total Protein 7.5 g/dL (6.5-8.0); Triglycerides 94 mg/dL (<150)
[2023-05-30 07:54] LABS: SLIDE REVIEW VERIFIED
[2023-05-30] MEDS: PHENobarbitaL sodium 130 MG/ML IM ONCE 235 MG IM (08:29)
--- NOTE | 2023-05-30 08:47 | MHC.CM.PN ---
CM met with Patient and his /HCP at bedside and addressed IMM with them(original was given to and a copy has been placed on the chart). Patient lives in an apartment with his and he required no DME [employer]. Home/pending likely PT eval is the tentative plan and CM has initiated and will follow for dc planning. PCP is Dr. Mei Ponce.
--- NOTE | 2023-05-30 10:57 | P.PNIM_ITS ---
Subjective Subjective Date of Service: 05/30/23 Interval History: seen and examined this morning follow up admission for brain mass patient restless, not able to provide history or ROS Neurologic Neurologic: Reports confusion Psychiatric Psychiatric: Reports confusion Physical Exam 2 Vital Signs: Vital Signs: Last Vital Signs Temp 98.0 F 05/30/23 01:53 Pulse 87 05/30/23 01:53 Resp 19 05/30/23 01:53 BP 128/86 05/30/23 01:53 Pulse Ox 93 05/30/23 01:53 O2 Del Method Room Air 05/30/23 01:53 BMI result Body Mass Index 24.6 Const: Other: restless, opens eyes to verbal stimuli. following some commands. moving all extremities. General: confusion Orientation/consciousness: confusion Resp: Other: loud breathing - chronic per Effort & Inspection: no respiratory distress and no use of accessory muscles Auscultation: clear to auscultation bilaterally Cardio: Rate: regular rate GI: Inspection: No distended Palpation (GI): Soft to palpation Neuro: Other: confused, moving all extremities, restless, unable to due full neuro exam - limited by pt cooperation, inability to follow all commands General: confusion Extrem: General: Yes no pedal edema Objective Data Active Medications Acetaminophen (Acetaminophen 325 Mg Tablet) 650 mg PO Q6H PRN PRN Reason: Pain, Mild (Pain Scale 1-3) Albuterol Sulfate (Albuterol Sulfate 90 Mcg 8 Gm Inhaler) 2 puff INHALE Q6H PRN PRN Reason: wheezing Dexamethasone Sodium Phosphate (Dexamethasone Sod Phosphate 4 Mg/Ml Vial) 4 mg IVPUSH Q8H [facility] Dextrose (Dextrose 50 % 25 Gm/50 Ml Syringe) 25 gm IVPUSH Q15M PRN; Protocol PRN Reason: per Hypoglycemia Standing Ord. Docusate Sodium (Docusate Sodium 100 Mg Capsule) 100 mg PO DAILY PRN PRN Reason: Constipation Glucose (Glucose Gel 15 Gm Gel..Gram.) 15 gm PO Q15M PRN; Protocol PRN Reason: per Hypoglycemia Standing Ord. Heparin Sodium (Porcine) (Heparin Sodium,Porcine 5,000 Unit/Ml Vial) 5,000 unit SUBCUT Q12H [facility] Last Admin: 05/30/23 01:25 Dose: 5,000 unit Documented By: LILIA Insulin Human Lispro (Insulin Lispro 100 Unit/Ml 3 Ml Vial) 0 unit SUBCUT QIDACHS [facility]; Protocol Morphine Sulfate (Morphine Sulfate 2 Mg/Ml Cartridge) 2 mg IVPUSH Q4H PRN; Protocol PRN Reason: Pain, Severe (Pain Scale 7-10) Ondansetron HCl (Ondansetron Hcl 4 Mg/2 Ml Vial) 4 mg IVPUSH Q8H PRN PRN Reason: Nausea and Vomiting Oxymetazoline HCl (Oxymetazoline Hcl 0.05 % Nasal 15 Ml [place]) 2 spray NOSTRIL- B Q12H PRN PRN Reason: Congestion Pharmacy Consult (Consult Rx Etoh Phenob Im/Po) 1 each MISCELLANE ONCE PRN; Protocol PRN Reason: Consult order Phenobarbital (Phenobarbital 15 Mg Tablet) 45 mg PO BID [facility]; Protocol Stop: 06/01/23 21:01 Phenobarbital (Phenobarbital 15 Mg Tablet) 15 mg PO BID [facility]; Protocol Stop: 06/03/23 21:01 Phenobarbital (Phenobarbital 15 Mg Tablet) 15 mg PO DAILY [facility]; Protocol Stop: 06/05/23 09:01 Phenobarbital Sodium (Phenobarbital Sodium 130 Mg/Ml Vial Im Q3hx2) 180 mg IM Q3H [facility]; Protocol Stop: 05/30/23 14:01 Sodium Chloride (0.9 % Sodium Chloride Flush 3 Ml Syringe) 3 ml IVFLUSH QSHIFT [facility] Last Admin: 05/30/23 08:29 Dose: 3 ml Documented By: JOCE Labs 05/30/23 07:13 05/30/23 07:13 Labs: Laboratory Results - last 24 hr 05/29/23 05/29/23 05/29/23 18:50 18:56 19:16 MCV 96.2 MCH 32.1 MCHC 33.3 RDW 12.7 Plt Count 173 D MPV 10.6 Immature Gran % (Auto) 0.2 Neut % (Auto) 90.1 H Lymph % (Auto) 5.6 L Mcleod % (Auto) 3.7 Eos % (Auto) 0.1 Baso % (Auto) 0.3 Lymph # (Auto) 0.5 L Mcleod # (Auto) 0.3 Eos # (Auto) 0.0 Baso # (Auto) 0.0 Abs Immat Gran (auto) 0.02 Absolute Neuts (auto) 7.9 Absolute Nucleated RBC 0.000 Nucleated RBC % (auto) 0.0 Smear Tech's Comments VERIFIED PT 12.1 Whole Blood PT 13.6 H INR 1.0 Whole Blood INR 1.1 APTT 35.6 Anion Gap 21 H Estim Creat Clear Calc 99.1 Estimated GFR > 60 POC Glucose 100 Random Glucose 98 Calcium 9.8 D Total Bilirubin AST ALT Alkaline Phosphatase Total Protein Albumin Triglycerides Cholesterol LDL Cholesterol, Calc HDL Cholesterol Urine Opiates Screen Urine Fentanyl Screen Ur Barbiturates Screen Ur Phencyclidine Scrn Ur Amphetamines Screen U Benzodiazepines Scrn Urine Cocaine Screen U Marijuana (THC) Screen Ethyl Alcohol < 10 05/29/23 05/30/23 21:40 07:13 MCV 93.3 MCH 31.5 MCHC 33.8 RDW 12.3 Plt Count 194 MPV 10.5 Immature Gran % (Auto) 0.1 Neut % (Auto) 90.1 H Lymph % (Auto) 8.5 L Mcleod % (Auto) 1.2 L Eos % (Auto) 0.0 Baso % (Auto) 0.1 Lymph # (Auto) 0.6 L Mcleod # (Auto) 0.1 Eos # (Auto) 0.0 Baso # (Auto) 0.0 Abs Immat Gran (auto) 0.01 Absolute Neuts (auto) 6.0 Absolute Nucleated RBC 0.000 Nucleated RBC % (auto) 0.0 Smear Tech's Comments VERIFIED PT Whole Blood PT INR Whole Blood INR APTT Anion Gap 20 Estim Creat Clear Calc 113.6 Estimated GFR > 60 POC Glucose Random Glucose 137 H Calcium 9.6 Total Bilirubin 1.5 H AST 28 ALT 11 Alkaline Phosphatase 83 Total Protein 7.5 Albumin 4.2 Triglycerides 94 Cholesterol 247 H LDL Cholesterol, Calc 157 H HDL Cholesterol 72 Urine Opiates Screen POSITIVE H Urine Fentanyl Screen Not Detected Ur Barbiturates Screen Not Detected Ur Phencyclidine Scrn Not Detected Ur Amphetamines Screen Not Detected U Benzodiazepines Scrn POSITIVE H Urine Cocaine Screen Not Detected U Marijuana (THC) Screen Not Detected Ethyl Alcohol Assessment and Plan (1) Encephalopathy: Status: Acute (2) Vasogenic brain edema: Status: Acute Plan 63-year-old male with past medical history of throat cancer status post trach and subsequent decanulation, radiation therapy, as well as history of lung cancer last year s/p chemowho was brought to the hospital with confusion found to have multiple brain lesions with associated vasogenic edema acute metabolic encephalopathy secondary to brain lesions Brain masses with vasogenic edema, and trace midline shift continue dexamethasone wishes are not to do any invasive surgery the may require him to be intubated through the trach neurology, oncology consults pending alcohol abuse with withdrawal patient was very agitated, received Ativan in the ED, as well as Haldol, but remained very agitated and was thus started on phenobarbitol for possible alcohol withdrawal according to the patient's , he drinks 5-6 beers daily but has no history of withdrawal continue phenobarb protocol dysphagia has history of throat radiation and has difficulty swallowing since treatment in 2018 - says he has never passed a speech evaluation if he is awake enough to eat she would like him to eat, she understands and accepts the risk of aspiration. seen by speech - failed evaluation, but if patient awake to eat safest would be pureed with thin liquids. takes pills crushed at baseline h/o cancer h/o throat ca -s/p treatment with chemo/radiation in 2018 h/o lung ca - treated with radiation last year [facility] by oncologist dr. escoto on chronic narcotics at baseline - will start IV morphine to prevent withdrawal hypothyroidism continue levothyroxine when able to take po hypertension continue antihypertensives when able to take po DVT prophylaxis: Heparin subQ attending - dr. antonio code status - DNR/DNI - goals of care discussed with at bedside - he would not want a trach again and would not want to be intubated. if patient worsens would want him to be comfortable. Patient requires ongoing inpatient stay for new brain mass with vasogenic edema requiring iv steroids and specialist evaluation Time Spent With Patient Time: Total time managing care of this patient today ____ minutes. Quality Stroke Does the patient have a stroke diagnosis?: No VTE Prior VTE?: No VTE Risk Level:: Medical - moderate - high VTE Device Contraindication: Treatment Not Indicated VTE Drug Contraindication: N/A - Med Ordered
[2023-05-30 11:05] VITALS: BP 137/89; PULSE 89; RESP 15; TEMP 37.1; O2SAT 93
--- NOTE | 2023-05-30 11:26 | P.CNNE_ITS ---
History of Present Illness Data of Consult Service Date: 05/30/23 Primary Care Provider: Mei Ponce MD [facility] Reason for consult: Brain lesion 63 years old man with history of throat cancer status post radiation treatment and recent diagnosis of lung cancer that has been treated with chemotherapy at [facility] apparently was doing okay as far as is cancer was concerned and was playing pool with his friends few days ago. He was brought to hospital after change in mental status. Initially he was evaluated for possible acute stroke but then his head CT revealed lesion suggestive of cancer and he was admitted for further treatment and evaluation. He was given dose of Decadron last night after which she was doing somewhat better. His was on the bedside stating that he was better this morning. There was no evidence of any seizure. Review of Systems 2 Review of Systems: No recent cold or flu-like illness PMFSH Past Medical History Medical History (Updated 05/30/23 @ 06:30 by Gina Medel MD) Lung cancer Non-cardiac chest pain Cervicalgia Tracheostomy present Major depression, recurrent Tobacco abuse Alcoholism Inguinal hernia of right side without obstruction or gangrene Other specified hypothyroidism Lipid disorder Hypertension, essential Throat cancer Anxiety Family History Family History Father Cancer Social History Social History Household Members: Significant Other Housing: Apartment Unable to assess alcohol history related to: Unknown Alcohol intake: current Patient Tobacco Use Status: Current everyday Tobacco user Cigarette Packs Per Day: 0.25 Years Smoked: 50 years Smoked in Last 30 Days: Yes e-Cigarette/Vaping Use: Never Used Second Hand Smoke Exposure: Yes Use of substances other than those prescribed or required for medical reasons: Unknown Advance Directives: Yes Advance Directives Information Provided: No Advance Directives on File: No Advance Directives Date on File: 05/30/23 Do you have thoughts of harming others: None Do you have a plan to hurt others: No Plan Recently lost weight without trying: Unsure Nutrition Risks: Difficulty swallowing service: Yes Current occupational status: disabled Cognitive needs: No Hearing needs: No Vision needs: No Meds Allergies Allergy/AdvReac Type Severity Reaction Status Date / Time No Known Allergies Allergy Verified 05/06/23 12:04 Active Medications: Current Medications Acetaminophen (Acetaminophen 325 Mg Tablet) 650 mg PO Q6H PRN PRN Reason: Pain, Mild (Pain Scale 1-3) Albuterol Sulfate (Albuterol Sulfate 90 Mcg 8 Gm Inhaler) 2 puff INHALE Q6H PRN PRN Reason: wheezing Dexamethasone Sodium Phosphate (Dexamethasone Sod Phosphate 4 Mg/Ml Vial) 4 mg IVPUSH Q8H [facility] Dextrose (Dextrose 50 % 25 Gm/50 Ml Syringe) 25 gm IVPUSH Q15M PRN; Protocol PRN Reason: per Hypoglycemia Standing Ord. Docusate Sodium (Docusate Sodium 100 Mg Capsule) 100 mg PO DAILY PRN PRN Reason: Constipation Glucose (Glucose Gel 15 Gm Gel..Gram.) 15 gm PO Q15M PRN; Protocol PRN Reason: per Hypoglycemia Standing Ord. Heparin Sodium (Porcine) (Heparin Sodium,Porcine 5,000 Unit/Ml Vial) 5,000 unit SUBCUT Q12H [facility] Last Admin: 05/30/23 01:25 Dose: 5,000 unit Insulin Human Lispro (Insulin Lispro 100 Unit/Ml 3 Ml Vial) 0 unit SUBCUT QIDACHS [facility]; Protocol Last Admin: 05/30/23 11:19 Dose: Not Given Morphine Sulfate (Morphine Sulfate 2 Mg/Ml Cartridge) 2 mg IVPUSH Q4H PRN; Protocol PRN Reason: Pain, Severe (Pain Scale 7-10) Ondansetron HCl (Ondansetron Hcl 4 Mg/2 Ml Vial) 4 mg IVPUSH Q8H PRN PRN Reason: Nausea and Vomiting Oxymetazoline HCl (Oxymetazoline Hcl 0.05 % Nasal 15 Ml [place]) 2 spray NOSTRIL- B Q12H PRN PRN Reason: Congestion Pharmacy Consult (Consult Rx Etoh Phenob Im/Po) 1 each MISCELLANE ONCE PRN; Protocol PRN Reason: Consult order Phenobarbital (Phenobarbital 15 Mg Tablet) 45 mg PO BID [facility]; Protocol Stop: 06/01/23 21:01 Phenobarbital (Phenobarbital 15 Mg Tablet) 15 mg PO BID [facility]; Protocol Stop: 06/03/23 21:01 Phenobarbital (Phenobarbital 15 Mg Tablet) 15 mg PO DAILY [facility]; Protocol Stop: 06/05/23 09:01 Phenobarbital Sodium (Phenobarbital Sodium 130 Mg/Ml Vial Im Q3hx2) 180 mg IM Q3H [facility]; Protocol Stop: 05/30/23 14:01 Sodium Chloride (0.9 % Sodium Chloride Flush 3 Ml Syringe) 3 ml IVFLUSH QSHIFT [facility] Last Admin: 05/30/23 08:29 Dose: 3 ml Home Medications Medication Instructions Recorded Confirmed Last Taken Type aspirin 81 mg tablet,delayed 81 mg PO DAILY 10/10/21 05/29/23 05/29/23 History release (Adult Low Dose Aspirin) albuterol sulfate 90 mcg/actuation 2 puff inhalation Q6H PRN wheezing 05/29/23 05/29/23 Unknown History aerosol inhaler levothyroxine 137 mcg tablet 137 mcg PO DAILY@0600 05/29/23 05/29/23 05/29/23 History oxycodone 15 mg tablet 30 mg PO Q3-4H PRN pain 05/29/23 05/29/23 Unknown History oxymetazoline 0.05 % nasal spray 2 spray intranasal Q12H PRN 05/29/23 05/29/23 Unknown History (Afrin (oxymetazoline)) Congestion Physical Exam 2 Vital Signs: Vital Signs: Last Vital Signs Temp 98.7 F 05/30/23 11:05 Pulse 89 05/30/23 11:05 Resp 15 05/30/23 11:05 BP 137/89 05/30/23 11:05 Pulse Ox 93 05/30/23 11:05 O2 Del Method Room Air 05/30/23 11:05 BMI result Body Mass Index 24.6 Neuro: Other: Quite drowsy and restless but upon coaxing he was able to open his eyes made eye contact stated me his name recognize his and followed simple commands. His speech was hoarse and soft. Spontaneity and fluency of speech seem to be okay. Visual romero were okay. Face was symmetrical. There was mild right-sided weakness and right extensor plantar. Results Labs 05/30/23 07:13 05/30/23 07:13 Labs: Short CBC 05/29/23 05/30/23 Range/Units 19:16 07:13 WBC 8.8 6.7 (4.8-10.8) X10*3/uL Hgb 15.0 16.4 (14.0-18.0) g/dl Hct 45.0 48.5 (42.0-52.0) % Plt Count 173 D 194 (160-400) X10*3/uL BMP 05/29/23 05/30/23 19:16 07:13 Sodium 139 137 Potassium 4.7 3.8 Chloride 96 97 Carbon Dioxide 27 24 BUN 6 L 9 Creatinine 0.63 0.55 Calcium 9.8 D 9.6 Liver Function 05/30/23 Range/Units 07:13 Total Bilirubin 1.5 H (0.0-1.0) mg/dL AST 28 (5-37) U/L ALT 11 (0-40) U/L Alkaline Phosphatase 83 (39-117) U/L Albumin 4.2 (3.5-5.0) g/dL CT scan of brain revealed a left temporal and left parietal lesions was significant hypodensity around them with a central hyperdensity suggestive of malignancy or metastatic lesions. Assessment and Plan (1) Encephalopathy: Status: Acute 63 years old man with diagnosis of lung cancer that was treated [facility] with chemotherapy has a left temporal and left parietal mixed density lesion with significant edema suggestive of metastatic disease. At this time my recommendation is to continue Decadron. I am not sure if there is any surgical option. I suggest discussing the case with his oncologist and finding out the best course of action, which maybe transfer him to [facility] or taking care of him as an outpatient. If no intervention was offered, I would suggest involving hospice service. Time Spent With Patient Time: Total time managing care of this patient today ____ minutes. Procedures Date of Service Date of Service: 05/30/23
[2023-05-30] MEDS: PHENobarbitaL sodium 130 MG/ML VIAL IM Q3Hx2 180 MG IM ×2 (11:45→15:00)
--- NOTE | 2023-05-30 12:28 | MHC.CM.PN ---
CM has asked Patient's to bring in a copy of Patient's HCP; per PA, Patient would not cognitively be able to complete a new HCP at this time. CM has asked PCP's office to check for a HCP and asked CM Microbiology Technician to upload the HCP if indeed it is faxed to CM, from the PCP. CM will follow.
--- NOTE | 2023-05-30 12:31 | P.CNHO_ITS ---
Subjective - Subjective Chief complaint: Mental status changes Patient: new to practice Consult date: 05/30/23 Requesting Physician: Sumi SANTOS Primary Care Provider: Mei Ponce MD HPI - Consult Narrative Reason for consult: Probable metastatic brain lesions Narrative: Adriel Pakr is a 63 year old male who has been admitted for acute mental status changes and found to have probable brain metastasis. Patient is unable to provide history, is the historian. Patient was diagnosed with locally advanced throat cancer in 2017 for which he underwent concurrent chemo/radiotherapy at [facility]. He was cured of this for a few years but was diagnosed early in 2022 with stage I lung cancer. He received radiation therapy for this. He had a CT chest a month ago which was reportedly normal. His found him confused and brought him to the emergency department. She says he was absolutely fine the day before. Evaluation in the ED, head CT showed an ill-defined mass in the left temporal lobe with surrounding vasogenic edema and mild local regional mass effect with trace rightward midline shift. Additional lesion in the left parietal lobe with mild surrounding vasogenic edema findings are concerning for intracranial metastatic disease. As well as 5 mm aneurysm in the right aspect of the basilar tip. Patient has been started on Decadron. thinks he is less confused today. Review of Systems - Constitutional Reports as per HPI - Neurologic Reports confusion PMFSH Medical History: Medical History (Last Updated 05/30/23 @ 06:29 by Gina Medel MD) Alcoholism Anxiety Cervicalgia Hypertension, essential Inguinal hernia of right side without obstruction or gangrene Lipid disorder Lung cancer Major depression, recurrent Non-cardiac chest pain Other specified hypothyroidism Throat cancer Tobacco abuse Tracheostomy present Family History: Family History (Last Reviewed 05/30/23 @ 06:28 by Gina Medel MD) Father Cancer Social History: Social History (Last Reviewed 05/30/23 @ 06:28 by Gina Medel MD) Living Situation History: Household Members: Significant Other Housing: Apartment Alcohol History: Unable to assess alcohol history related to: Unknown Alcohol History Details: Currently Displaying Signs/Symptoms of Alcohol Withdrawal: No Tobacco History: Patient Tobacco Use Status: Current everyday Tobacco Cigarette Packs Per Day: 0.25 Years Smoked: 50 years Smoked in Last 30 Days: Yes e-Cigarette/Vaping Use: Never Used Second Hand Smoke Exposure: Yes Substance Use History: Use of substances other than those prescribed or required for medical reasons : Unknown Advance Directives: Advance Directives: Yes Advance Directives Information Provided: No Advance Directives on File: No Advance Directives Date on File: 05/30/23 Homicidal Assessment: Do you have thoughts of harming others: None Do you have a plan to hurt others: No Plan Nutrition Assessment: Recently lost weight without trying: Unsure Nutrition Risks: Difficulty swallowing Occupation Assessmet: service: Yes Current occupational status: disabled Home Medications and Allergies Current Medications: Current Medications Acetaminophen (Acetaminophen 325 Mg Tablet) 650 mg PO Q6H PRN PRN Reason: Pain, Mild (Pain Scale 1-3) Albuterol Sulfate (Albuterol Sulfate 90 Mcg 8 Gm Inhaler) 2 puff INHALE Q6H PRN PRN Reason: wheezing Dexamethasone Sodium Phosphate (Dexamethasone Sod Phosphate 4 Mg/Ml Vial) 4 mg IVPUSH Q8H [facility] Dextrose (Dextrose 50 % 25 Gm/50 Ml Syringe) 25 gm IVPUSH Q15M PRN; Protocol PRN Reason: per Hypoglycemia Standing Ord. Docusate Sodium (Docusate Sodium 100 Mg Capsule) 100 mg PO DAILY PRN PRN Reason: Constipation Glucose (Glucose Gel 15 Gm Gel..Gram.) 15 gm PO Q15M PRN; Protocol PRN Reason: per Hypoglycemia Standing Ord. Heparin Sodium (Porcine) (Heparin Sodium,Porcine 5,000 Unit/Ml Vial) 5,000 unit SUBCUT Q12H [facility] Last Admin: 05/30/23 11:45 Dose: 5,000 unit Insulin Human Lispro (Insulin Lispro 100 Unit/Ml 3 Ml Vial) 0 unit SUBCUT QIDACHS [facility]; Protocol Last Admin: 05/30/23 11:19 Dose: Not Given Morphine Sulfate (Morphine Sulfate 2 Mg/Ml Cartridge) 2 mg IVPUSH Q4H PRN; Protocol PRN Reason: Pain, Severe (Pain Scale 7-10) Ondansetron HCl (Ondansetron Hcl 4 Mg/2 Ml Vial) 4 mg IVPUSH Q8H PRN PRN Reason: Nausea and Vomiting Oxymetazoline HCl (Oxymetazoline Hcl 0.05 % Nasal 15 Ml [place]) 2 spray NOSTRIL- B Q12H PRN PRN Reason: Congestion Pharmacy Consult (Consult Rx Etoh Phenob Im/Po) 1 each MISCELLANE ONCE PRN; Protocol PRN Reason: Consult order Phenobarbital (Phenobarbital 15 Mg Tablet) 45 mg PO BID DINA; Protocol Stop: 06/01/23 21:01 Phenobarbital (Phenobarbital 15 Mg Tablet) 15 mg PO BID DINA; Protocol Stop: 06/03/23 21:01 Phenobarbital (Phenobarbital 15 Mg Tablet) 15 mg PO DAILY DINA; Protocol Stop: 06/05/23 09:01 Phenobarbital Sodium (Phenobarbital Sodium 130 Mg/Ml Vial Im Q3hx2) 180 mg IM Q3H DINA; Protocol Stop: 05/30/23 14:01 Last Admin: 05/30/23 11:45 Dose: 180 mg Sodium Chloride (0.9 % Sodium Chloride Flush 3 Ml Syringe) 3 ml IVFLUSH QSHIFT [facility] Last Admin: 05/30/23 08:29 Dose: 3 ml Home Medications Medication Instructions Recorded Confirmed Type aspirin 81 mg tablet,delayed 81 mg PO DAILY 10/10/21 05/29/23 History release (Adult Low Dose Aspirin) albuterol sulfate 90 mcg/actuation 2 puff inhalation Q6H PRN wheezing 05/29/23 05/29/23 History aerosol inhaler levothyroxine 137 mcg tablet 137 mcg PO DAILY@0600 05/29/23 05/29/23 History oxycodone 15 mg tablet 30 mg PO Q3-4H PRN pain 05/29/23 05/29/23 History oxymetazoline 0.05 % nasal spray 2 spray intranasal Q12H PRN 05/29/23 05/29/23 History (Afrin (oxymetazoline)) Congestion Allergies Allergy/AdvReac Type Severity Reaction Status Date / Time No Known Allergies Allergy Verified 05/06/23 12:04 Physical Exam Vital signs: Vital Signs Temp 98.7 F 05/30/23 11:05 Pulse 89 05/30/23 11:05 Resp 15 05/30/23 11:05 BP 137/89 05/30/23 11:05 Pulse Ox 93 05/30/23 11:05 O2 Del Method Room Air 05/30/23 11:05 Intake & Output 05/29/23 05/30/23 05/30/23 18:59 06:59 18:59 Output Total 325 / 325 Balance -325 / -325 Urine Output (Average ml/kg/hr) 0.42 Output: Output, Urine Amount 325 / 325 Other: NPO Yes Urine Urinal Urine Color Straw Weight 64.9 kg Weight in Grams [id number] Weight 64.9 kg - Constitutional Present: no acute distress - Routine HEENT Exam Eye: Present: normal appearance, PERRL - Routine Neck Exam Absent: lymphadenopathy - Routine Respiratory Exam Absent: accessory muscle use - Routine Cardiovascular Exam Cardiovascular: Present: S1, S2 - Routine Neurological Exam Present: altered mental status Hem/Onc Consult Result - Labs CBC & Chem 7: 05/30/23 07:13 05/30/23 07:13 Labs: Short CBC 05/29/23 05/30/23 Range/Units 19:16 07:13 WBC 8.8 6.7 (4.8-10.8) X10*3/uL Hgb 15.0 16.4 (14.0-18.0) g/dl Hct 45.0 48.5 (42.0-52.0) % Plt Count 173 D 194 (160-400) X10*3/uL BMP 05/29/23 05/30/23 19:16 07:13 Sodium 139 137 Potassium 4.7 3.8 Chloride 96 97 Carbon Dioxide 27 24 BUN 6 L 9 Creatinine 0.63 0.55 Calcium 9.8 D 9.6 Liver Function 05/30/23 Range/Units 07:13 Total Bilirubin 1.5 H (0.0-1.0) mg/dL AST 28 (5-37) U/L ALT 11 (0-40) U/L Alkaline Phosphatase 83 (39-117) U/L Albumin 4.2 (3.5-5.0) g/dL Assessment and Plan Patient Active problem list reviewed?: Yes (1) Metastatic cancer to brain Status: Acute Assessment and plan: 1. This is a 63 year male admitted for acute mental status changes and found to have probable metastatic brain lesions. He has a history of locally advanced throat cancer diagnosed in 2017 which was treated with concurrent chemo/radiation therapy and history of tracheostomy. In October 2023 he was diagnosed with stage I lung cancer for which she underwent radiation therapy. He is followed by Dr. Collins and Dr. Michel at [facility]. He apparently had a CT chest a month ago which was negative. CT brain showed ill-defined mass in the left temporal lobe with surrounding vasogenic edema and mild local regional mass effect with trace rightward midline shift. Additional suspected calcified lesion in the left parietal lobe with mild surrounding vasogenic edema, findings concerning for intracranial metastatic disease. Further evaluation with contrast enhanced MRI has been recommended. Patient is currently on Decadron 4 mg IV every 8 hours. He has not had a seizure, anti seizure prophylaxis is not necessary. He will need brain MRI for further evaluation but at this time patient is not cooperative. Brain Mets is probably related to lung cancer. Continue current treatment. He will need to be referred back to his radiation oncologist and medical oncologist at [facility] for further management. His has already called Dr. Collins. I thank you for this consultation. - Time Spent With Patient Time Spent with Patient (in minutes): 20
--- NOTE | 2023-05-30 13:15 | MHC.CM.PN ---
Patient's PCP's office does not have a HCP on file; CM made PA aware.
--- NOTE | 2023-05-30 13:54 | MHC.SL.SWA ---
Speech Pathologist Impression: Severe oropharyngeal dysphagia, risk of aspiration Risk of Aspiration Due to: Medically Fragile Neurological Condition Tracheostomy Weak Cough Dysphasia Diet Status: No change Liquid Consistency and Strategies for Safe Swallow: Liquid Intake Recommendation: NPO Solid Food Consistency: Dietary Recommendations: NPO Additional Modifications to Solid Foods: Pt w/ hx throat cx in 2018 s/p resection, radiation tx, as well as hx of trach. Pt had procedure to close stoma after trach was removed in 2019, which was unsuccessful. Pt w/ open stoma. Pt w/ recent dx of lung cancer, was reportedly in remission this past year. Pt came to ED w/ complaints of confusion, was found to have brain lesions. Pt was NPO pending COURT SPECIALIST consult. He was seen this morning for bedside swallow eval. Pt presents with severe oropharyngeal dysphagia and overt clinical signs of aspiration. Pt gasping, w/ notable wet cough with each trial thin liquid and honey thick small amounts by teaspoon. Based on our observations at bedside, the safest option would be to continue NPO status. Discussed w/ pt's and attending hospitalist. Per , pt ?always failed his swallow tests? and he and his have chosen to continue eating/drinking despite the risks. Recommend pt and his to have a discussion w/ hospitalist. If they decide to forgo NPO status and continue PO diet, pt's reports that pt does best with a soft, pureed diet. As previously stated, pt will likely continue to aspirate despite diet modifications. Pt would require close monitoring and strict aspiration precautions to increase safety, which were discussed w/ pt's : small bites of food, small sips of liquid by teaspoon, avoid straws, follow each bite/sip w/ volitional throat clear/cough then a dry swallow, upright 90 degree position during PO intake and for at least 30 minutes afterwards. In either case, it is crucial pt have frequent oral care- COURT SPECIALIST discussed importance of oral care in decreasing oral bacteria which can be aspirated, thus decreasing risk of developing PNA. Per PA, pt to remain NPO at least for today or until pt's mental status/level of alertness improves. COURT SPECIALIST will continue to follow. Oral Medication Intake: NPO Please contact the pharmacy regarding appropriate crushable or liquid drug formulations that are available whenever modified delivery is recommended. Swallowing Recommended Treatments: Compens. Strategy Educat. Recommendation for Speech: Inpatient Speech Therapy Cloth Handler Clinican/Clinical Fellow: No Supervisory Statement: I have reviewed and agree with the student/clinical fellow's documentation: N/A Speech Language Pathologist: Jeanette Allred M.A., [facility]-COURT SPECIALIST
--- NOTE | 2023-05-30 15:28 | P.DS_ITS ---
DS: Providers Provider Date of Service: 05/30/23 Date of admission: 05/29/23 22:31 Date of discharge: 05/30/23 Primary care physician: Mei Ponce MD Consults: 05/29/23 22:21 Consult to Neurology Routine Consulting Provider: [facility] Reason for consultation: soraida met, vasogenic edema, Mass effect Has provider been notified: Yes 05/29/23 22:31 Consult to Hematology / Oncology Routine Consulting Provider: Lelo Workman Reason for consultation: brain met Has provider been notified: No Attending physician on discharge: Zachery Lynch Discharging clinician: Sumi Grier DS: Diagnosis Discharge Diagnosis (1) Vasogenic brain edema: Status: Acute DS: Summary Hospital Course Hospital Course: From H&P on day of admission 63-year-old male past medical history of throat cancer in 2018, status post resection, radiation therapy, as well as presence of trach, recently diagnosed stage I lung cancer status post chemotherapy treatment and was reportedly in remission for the past year comes into the hospital with complaints of confusion. at bedside gives me most of the history as patien t is very confused, obtunded, and unable to give much history. She reports that for the past 5 days he was doing very well although prior to that he was having frequent falls but no evidence of acute infection or abnormality. He was doing well the day before, but today when she got home from work it was very confused, he was talking but made no sense. And patient's was not able to understand him therefore brought into the ED. Unable to obtain other review of system On arrival to the ED patient hemodynamically stable , no significant vital abnormality Labs reviewed, unremarkable, does use chronic opioids which are positive on his UDS Head CT showed an ill-defined mass in the left temporal lobe with surrounding vasogenic edema and mild local regional mass effect with trace rightward midline shift. Additional lesion in the left parietal lobe with mild surrounding vasogenic edema findings are concerning for intracranial metastatic disease. 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 Patient's states that he does not want any surgery or invasive intervention and he does not want to be intubated or trached for any of it and therefore have wanted any further intervention that would cause him to be intubated. Neurology also okay with patient being admitted to our hospital after being discussed with ED physician acute metabolic encephalopathy secondary to brain lesions Brain masses with vasogenic edema, and trace midline shift continue dexamethasone. Patient's oncologist Dr. Collins requested transfer to [facility]. patient has been accepted. continue neuro checks. alcohol abuse with withdrawal patient was very agitated, received Ativan in the ED, as well as Haldol, but remained very agitated and was thus started on phenobarbitol for possible alcohol withdrawal according to the patient's , he drinks 5-6 beers daily but has no history of withdrawal received first three loading doses of phenobarbitol dysphagia has history of throat radiation and has difficulty swallowing since treatment in 2018 - says he has never passed a speech evaluation if he is awake enough to eat she would like him to eat, she understands and accepts the risk of aspiration. seen by speech - failed evaluation, but if patient awake to eat safest would be pureed with thin liquids. takes pills crushed at baseline all po meds on hold for now h/o cancer h/o throat ca -s/p treatment with chemo/radiation in 2018 h/o lung ca - treated with radiation last year followed at [facility] by oncologist dr. collins on chronic narcotics at baseline - was started on IV morphine to prevent withdrawal Time Spent with Patient Time attestation: Total time managing care of this patient today ____ minutes. Discharge coordination time: Greater than 30 minutes Quality: Safe Use of Opioids Does Pt have an Active Cancer Diagnosis on the Problem List?: Yes Opioid Measure Date for [facility] Report: 04/30/23 Opioid Measure Time for [facility] Report: 15:33 Quality: Stroke Does the patient have a stroke diagnosis?: No Physical Exam Vital Signs: Vital Signs: Last Vital Signs Temp 98.7 F 05/30/23 11:05 Pulse 89 05/30/23 11:05 Resp 15 05/30/23 11:05 BP 137/89 05/30/23 11:05 Pulse Ox 93 05/30/23 11:05 O2 Del Method Room Air 05/30/23 11:05 BMI result Body Mass Index 24.6 Const: Other: restless, opens eyes to verbal stimuli. following some commands. moving all extremities. General: confusion Orientation/consciousness: confusion Resp: Effort & Inspection: no respiratory distress and no use of accessory muscles Auscultation: clear to auscultation bilaterally Cardio: Rate: regular rate GI: Inspection: No distended Palpation (GI): Soft to palpation Neuro: Other: confused, moving all extremities, restless, unable to due full neuro exam - limited by pt cooperation, inability to follow all commands consistently General: confusion Extrem: General: Yes no pedal edema DS: Data Data Completed and Pending Labs on day of discharge: Laboratory Results - last 24 hr 05/29/23 05/29/23 05/29/23 18:50 18:56 19:16 WBC 8.8 RBC 4.68 Hgb 15.0 Hct 45.0 MCV 96.2 MCH 32.1 MCHC 33.3 RDW 12.7 Plt Count 173 D MPV 10.6 Immature Gran % (Auto) 0.2 Neut % (Auto) 90.1 H Lymph % (Auto) 5.6 L [place] % (Auto) 3.7 Eos % (Auto) 0.1 Baso % (Auto) 0.3 Lymph # (Auto) 0.5 L [place] # (Auto) 0.3 Eos # (Auto) 0.0 Baso # (Auto) 0.0 Abs Immat Gran (auto) 0.02 Absolute Neuts (auto) 7.9 Absolute Nucleated RBC 0.000 Nucleated RBC % (auto) 0.0 Smear Tech's Comments VERIFIED PT 12.1 Whole Blood PT 13.6 H INR 1.0 Whole Blood INR 1.1 APTT 35.6 Sodium 139 Potassium 4.7 Chloride 96 Carbon Dioxide 27 Anion Gap 21 H BUN 6 L Creatinine 0.63 Estim Creat Clear Calc 99.1 Estimated GFR > 60 POC Glucose 100 Random Glucose 98 Calcium 9.8 D Total Bilirubin AST ALT Alkaline Phosphatase Troponin I High Sens 26.3 Total Protein Albumin Triglycerides Cholesterol LDL Cholesterol, Calc HDL Cholesterol Urine Opiates Screen Urine Fentanyl Screen Ur Barbiturates Screen Ur Phencyclidine Scrn Ur Amphetamines Screen U Benzodiazepines Scrn Urine Cocaine Screen U Marijuana (THC) Screen Ethyl Alcohol < 10 05/29/23 05/30/23 21:40 07:13 WBC 6.7 RBC 5.20 Hgb 16.4 Hct 48.5 MCV 93.3 MCH 31.5 MCHC 33.8 RDW 12.3 Plt Count 194 MPV 10.5 Immature Gran % (Auto) 0.1 Neut % (Auto) 90.1 H Lymph % (Auto) 8.5 L [place] % (Auto) 1.2 L Eos % (Auto) 0.0 Baso % (Auto) 0.1 Lymph # (Auto) 0.6 L [place] # (Auto) 0.1 Eos # (Auto) 0.0 Baso # (Auto) 0.0 Abs Immat Gran (auto) 0.01 Absolute Neuts (auto) 6.0 Absolute Nucleated RBC 0.000 Nucleated RBC % (auto) 0.0 Smear Tech's Comments VERIFIED PT Whole Blood PT INR Whole Blood INR APTT Sodium 137 Potassium 3.8 Chloride 97 Carbon Dioxide 24 Anion Gap 20 BUN 9 Creatinine 0.55 Estim Creat Clear Calc 113.6 Estimated GFR > 60 POC Glucose Random Glucose 137 H Calcium 9.6 Total Bilirubin 1.5 H AST 28 ALT 11 Alkaline Phosphatase 83 Troponin I High Sens Total Protein 7.5 Albumin 4.2 Triglycerides 94 Cholesterol 247 H LDL Cholesterol, Calc 157 H HDL Cholesterol 72 Urine Opiates Screen POSITIVE H Urine Fentanyl Screen Not Detected Ur Barbiturates Screen Not Detected Ur Phencyclidine Scrn Not Detected Ur Amphetamines Screen Not Detected U Benzodiazepines Scrn POSITIVE H Urine Cocaine Screen Not Detected U Marijuana (THC) Screen Not Detected Ethyl Alcohol Imaging CT scan - head: Radiologist's impression: ITS Impressions Head CT 05/29/23 19:05 IMPRESSION: 1. Ill-defined mass in the left temporal lobe with surrounding vasogenic edema and mild locoregional mass effect with trace rightward midline shift. Additional suspected partially calcified lesion in the left parietal lobe with mild surrounding vasogenic edema. Findings are concerning for intracranial metastatic disease. Recommend further evaluation with contrast-enhanced MRI of the brain. 2. Suspected aneurysm along the right aspect of the basilar tip measuring approximately 5 mm. Recommend further assessment with noncontrast MRA head. Above impression was discussed with Dr. Lazo on 05/29/2023 at 7:27 PM Chest X-Ray 05/30/23 10:45 IMPRESSION: No acute cardiopulmonary disease or interval change. Discharge Plan Discharge Anticipated Discharge Date/Time: 05/30/23 15:23 Patient Disposition: Xfer Acute Care Hospital Discharge Diagnosis: brain mass with vasogenic edema Referrals: Mei Ponce MD [Primary Care Provider] - 1 Week Discharge Medications: Continued albuterol sulfate 90 mcg/actuation HFA aerosol inhaler 2 puff INHALATION Q6H PRN (Reason: wheezing) oxymetazoline [Afrin (oxymetazoline)] 0.05 % [place],Non-Aerosol 2 spray INTRANASAL Q12H PRN (Reason: Congestion) Held labetalol 200 mg tablet 200 mg PO BID 90 Days Qty: 180 3RF Hold Instructions: npo oxycodone 15 mg tablet 30 mg PO Q3-4H PRN (Reason: pain) Hold Instructions: npo levothyroxine 137 mcg tablet 137 mcg PO DAILY@0600 Hold Instructions: npo aspirin [Adult Low Dose Aspirin] 81 mg tablet,delayed release (DR/EC) 81 mg PO DAILY Hold Instructions: npo alprazolam 1 mg tablet 1 mg PO BID 30 Days Qty: 60 2RF Hold Instructions: npo Discharge Orders: Discharge Order (Routine); Ordered 05/30/23 Ordered By: Sumi Grier Activity on Discharge: As tolerated Stand Alone Forms: Patient Portal Discharge page Care Plan Goals: see below Health Concerns: brain lesion with associated vasogenic edema alcohol withdrawal Plan of Treatment: received 10 mg IV decadron and then 4 mg q8h was started on phenobarbitol for possible alcohol withdrawal - got first three IM loading doses Assessment: see discharge summary
[2023-05-30 15:35] VITALS: BP 134/79; PULSE 65; RESP 15; TEMP 37.2; O2SAT 94
[2023-05-30 15:43] LABS: COVID-19 Test Negative (Negative); IDNOW Serial# 9DB6401D
[2023-05-30 15:47] LABS: Glucose, Whole Blood 128 mg/dL (60-115)
[2023-05-30] MEDS: dexAMETHasone sod phosphate 4 MG/ML VIAL IVPUSH (15:48)
== END 2023-05-30 18:16 | disposition short-term general hospital (02) | DRG 54 ==
LOC: HO.ED 20:10 → HO.EDOVER 22:35 → HO.IMC 23:17
PROVIDERS: Admitting Provider Internal Medicine; Emergency Provider Emergency Medicine Emergency Medical Services; PCP Internal Medicine; Visit Provider Physician Assistant Medical
DX: C79.31 Secondary malignant neoplasm of brain (principal); G93.41 Metabolic encephalopathy; F10.139 Alcohol abuse with withdrawal, unspecified; Z66 Do not resuscitate; I10 Essential (primary) hypertension; F17.210 Nicotine dependence, cigarettes, uncomplicated; R13.10 Dysphagia, unspecified; Z20.822 Contact with and (suspected) exposure to COVID-19; Z71.6 Tobacco abuse counseling; Z85.819 Personal history of malignant neoplasm of unspecified site of lip, oral cavity, and pharynx; Z79.82 Long term (current) use of aspirin; Z79.890 Hormone replacement therapy; Z79.899 Other long term (current) drug therapy
CPT/HCPCS: 36415; 70450; 71045; 80048; 80053; 80061; 80307; 82947; 84484; 85025; 85610; 85730; 87635; 92610; 93005; 99285; J1100; J1643; J2060; J2560

== ENCOUNTER → 2023-05-29 22:31 | Outpatient (BNV) | payer MEDICARE, SELFPAY | PROVIDERS: Admitting Provider Internal Medicine; Emergency Provider Emergency Medicine Emergency Medical Services; PCP Internal Medicine; Visit Provider Internal Medicine | DX: G93.40 Encephalopathy, unspecified (principal); G93.6 Cerebral edema; C79.31 Secondary malignant neoplasm of brain; F10.139 Alcohol abuse with withdrawal, unspecified | CPT/HCPCS: 99223; 99239 ==

== ENCOUNTER → 2023-05-29 22:31 | Outpatient (BNV) | payer MEDICARE, SELFPAY | PROVIDERS: Admitting Provider Internal Medicine; Emergency Provider Emergency Medicine Emergency Medical Services; PCP Internal Medicine; Visit Provider Internal Medicine | DX: C79.31 Secondary malignant neoplasm of brain (principal); C14.0 Malignant neoplasm of pharynx, unspecified | CPT/HCPCS: 99222 ==